=== PATIENT | female | born 1955 | race African-American/Black ===

== ENCOUNTER 2017-09-07 06:59 | Inpatient (IN) | payer BC ==
[~2017-09-07] VITALS: Ht 165.1 cm; Wt 115.9 kg
[2017-09-07 07:21] LABS: BILIRUBIN,URINE NEGATIVE (NEG); GLUCOSE,URINE NEGATIVE (NEG); NITRITE,URINE NEGATIVE (NEG); PROTEIN,URINE NEGATIVE (NEG-TRACE); UROBILINOGEN,URINE 0.2 mg/dL (0.2 mg/dL)
[2017-09-07 07:30] LABS: BACTERIA,URINE FEW /HPF (0-FEW); RBC,URINE OCC /HPF (0-2); SQUAMOUS EPITHELIAL CELL,UR FEW /LPF
[2017-09-07] MEDS ORDERED: LIDO:MAALOX:DONNATAL 1:1:1 15 ML SINGLE DOSE SWSW ONE (07:30)
[2017-09-07] MEDS ORDERED: METO-239 PO (07:40)
[2017-09-07] MEDS ORDERED: AMLO10TA2 PO (07:40)
[2017-09-07 07:42] LABS: BASO # 0.1 x10^3/uL (0.0-0.2); BASO % 1 % (0-3); EOS % 3 % (0-3); HEMATOCRIT 38.2 % (36.0-47.0); HEMOGLOBIN 12.5 g/dL (12.0-15.5); LYMPH % 16 % (24-48); MEAN CORPUSCULAR HEMOGLOBIN 28 pg (25-35); MEAN CORPUSCULAR HGB CONC 33 g/dL (31-37); MEAN CORPUSCULAR VOLUME 86 fL (79-100); MONO % 8 % (0-9); NEUT % 73 % (31-73); PLATELET COUNT 262 x10^3/uL (140-400); RED BLOOD COUNT 4.44 x10^6/uL (3.50-5.40); RED CELL DISTRIBUTION WIDTH 14.6 % (11.5-14.5); WHITE BLOOD COUNT 6.5 x10^3/uL (4.0-11.0)
--- NOTE | 2017-09-07 07:44 | EKG ---
[facility] [address] [place] [address] Test Date: 2017-09-07 Test Time: 07:43:10 Pat Name: GEGE MCCRARY Department: Room: Gender: F Computer Security Specialist: DIAMOND : 1955 Requested By: KENNEDY MCKEON Order Number: [id number] Reading MD: Zoila Guerrero Measurements Intervals [place] Rate: 70 P: 28 FL: 154 QRS: -10 QRSD: 82 T: 14 QT: 418 QTc: 454 Interpretive Statements SINUS RHYTHM LEFTWARD AXIS QRS(T) CONTOUR ABNORMALITY CONSIDER ANTEROLATERAL MYOCARDIAL DAMAGE Electronically Signed On 09-08-2017 19:25:16 CDT by Zoila Guerrero
[2017-09-07 07:53] LABS: CALCIUM 9.4 mg/dL (8.5-10.1); CREATININE 1.1 mg/dL (0.6-1.0); GFR 61.5; POTASSIUM 3.7 mmol/L (3.5-5.1)
--- NOTE | 2017-09-07 07:54 | PHYS DOC ---
Past Medical History Past Medical History: Hypertension, Other Additional Past Medical Histor: Hiatel hernia, Seasonal allergies,Spots on lungs scheduled to see Pul Past Surgical History: Tubal ligation, Other Additional Past Surgical Histo: R)knee scoped and scraped. Alcohol Use: Occasionally Drug Use: None Adult General Chief Complaint Chief Complaint: ABDOMINAL PAIN HPI HPI Patient is a 61 year old female presents to the emergency department stating that she has having epigastric pain and discomfort. Patient states she's been diagnosed with a hiatal hernia at [facility]. Patient states around 9:00 last night she developed a squeezing type pain in her epigastric area. She states normally when this occurs that she can take some Tums as well as vomit and have diarrhea at that relieves the discomfort. She states that she did take 2 Tums and vomited a little with no relief. Patient denies any fever, chills or any diarrhea currently. Shunt states she has not taken her blood pressure medications this morning as she normally does. Review of Systems Review of Systems Constitutional: Denies fever or chills [] Eyes: Denies change in visual acuity, redness, or eye pain [] HENT: Denies nasal congestion or sore throat [] Respiratory: Denies cough or shortness of breath [] Cardiovascular: No additional information not addressed in HPI [] GI: upper abdominal pain, nausea, vomiting, denies bloody stools or diarrhea [] : Denies dysuria or hematuria [] Musculoskeletal: Denies back pain or joint pain [] Integument: Denies rash or skin lesions [] Neurologic: Denies headache, focal weakness or sensory changes [] Endocrine: Denies polyuria or polydipsia [] Current Medications Current Medications Current Medications Medications (Trade) Dose Ordered Sig/Krish Start Time Stop Time Status Last Admin Dose Admin Multi-Ingredient Mouthwash/Gargle (Gi Cocktail Single Dose) 15 ml 1X ONCE 09/07/17 07:30 09/07/17 07:39 DC 09/07/17 07:56 15 ML Allergies Allergies Allergies Coded Allergies Type Severity Reaction Last Updated Verified Sulfa (Sulfonamide Antibiotics) Allergy Severe Anaphylaxis 09/07/17 Yes aspirin Allergy Severe Anaphylaxis 09/07/17 Yes codeine Allergy Severe Anaphylaxis 09/07/17 Yes Physical Exam Physical Exam Constitutional: Well developed, well nourished, no acute distress, non-toxic appearance. [] HENT: Normocephalic, atraumatic, bilateral external ears normal, oropharynx moist, no oral exudates, nose normal. [] Eyes: PERRLA, EOMI, conjunctiva normal, no discharge. [] Neck: Normal range of motion, no tenderness, supple, no stridor. [] Cardiovascular:Heart rate regular rhythm, no murmur [] Lungs & Thorax: Bilateral breath sounds clear to auscultation [] Abdomen: Bowel sounds hypoactive soft, epigastric and left sided abdominal tenderness, no masses, no pulsatile masses. No guarding, no rebound tenderness noted. Skin: Warm, dry, no erythema, no rash. [] Extremities: No tenderness, no cyanosis, no clubbing, ROM intact, no edema. [] Neurologic: Alert and oriented X 3, normal motor function, normal sensory function, no focal deficits noted. [] Psychologic: Affect normal, judgement normal, mood normal. [] Current Patient Data Vital Signs Vital Signs Date Time Temp Pulse Resp B/P (MAP) Pulse Ox O2 Delivery O2 Flow Rate FiO2 09/07/17 08:50 68 234/99 09/07/17 08:45 20 97 Room Air 09/07/17 07:23 97.8 97.8 Lab Values Laboratory Tests Test 09/07/17 07:00 09/07/17 07:30 Urine Collection Type Void Urine Color Yellow Urine Clarity Clear Urine pH 7.0 Urine Specific [place] <=1.005 Urine Protein Negative mg/dL (NEG-TRACE) Urine Glucose (UA) Negative mg/dL (NEG) Urine Ketones (Stick) Negative mg/dL (NEG) Urine Blood Negative (NEG) Urine Nitrite Negative (NEG) Urine Bilirubin Negative (NEG) Urine Urobilinogen Dipstick 0.2 mg/dL (0.2 mg/dL) Urine Leukocyte Esterase Negative (NEG) Urine RBC Occ /HPF (0-2) Urine WBC 1-4 /HPF (0-4) Urine Squamous Epithelial Cells Few /LPF Urine Bacteria Few /HPF (0-FEW) White Blood Count 6.5 x10^3/uL (4.0-11.0) Red Blood Count 4.44 x10^6/uL (3.50-5.40) Hemoglobin 12.5 g/dL (12.0-15.5) Hematocrit 38.2 % (36.0-47.0) Mean Corpuscular Volume 86 fL (79-100) Mean Corpuscular Hemoglobin 28 pg (25-35) Mean Corpuscular Hemoglobin Concent 33 g/dL (31-37) Red Cell Distribution Width 14.6 % (11.5-14.5) H Platelet Count 262 x10^3/uL (140-400) Neutrophils (%) (Auto) 73 % (31-73) Lymphocytes (%) (Auto) 16 % (24-48) L Monocytes (%) (Auto) 8 % (0-9) Eosinophils (%) (Auto) 3 % (0-3) Basophils (%) (Auto) 1 % (0-3) Neutrophils # (Auto) 4.7 x10^3uL (1.8-7.7) Lymphocytes # (Auto) 1.0 x10^3/uL (1.0-4.8) Monocytes # (Auto) 0.5 x10^3/uL (0.0-1.1) Eosinophils # (Auto) 0.2 x10^3/uL (0.0-0.7) Basophils # (Auto) 0.1 x10^3/uL (0.0-0.2) Sodium Level 146 mmol/L (136-145) H Potassium Level 3.7 mmol/L (3.5-5.1) Chloride Level 109 mmol/L (98-107) H Carbon Dioxide Level 31 mmol/L (21-32) Anion Gap 6 (6-14) Blood Urea Nitrogen 16 mg/dL (7-20) Creatinine 1.1 mg/dL (0.6-1.0) H Estimated GFR (Cockcroft-Gault) 61.5 BUN/Creatinine Ratio 15 (6-20) Glucose Level 93 mg/dL (70-99) Calcium Level 9.4 mg/dL (8.5-10.1) Total Bilirubin 0.7 mg/dL (0.2-1.0) Aspartate Amino Transferase (AST) 453 U/L (15-37) H Alanine Aminotransferase (ALT) 278 U/L (14-59) H Alkaline Phosphatase 202 U/L (46-116) H Troponin I Quantitative < 0.017 ng/mL (0.000-0.055) Total Protein 7.9 g/dL (6.4-8.2) Albumin 3.3 g/dL (3.4-5.0) L Albumin/Globulin Ratio 0.7 (1.0-1.7) L Amylase Level 2708 U/L (25-115) H Lipase 97873 U/L (73-393) H Laboratory Tests 09/07/17 07:30 Laboratory Tests 09/07/17 07:30 EKG EKG EKG completed at 07 43. Heart rate 70 sinus rhythm noted, T wave inversion in lead III no STEMI per Dr. Mooney.[] Radiology/Procedures Radiology/Procedures [[address] [address] IMAGING REPORT Signed PATIENT: GEGE MCCRARY ACCOUNT: [id number] : 1955 LOCATION: ER AGE: 61 SEX: F EXAM STATUS: REG ER ORD. PHYSICIAN: KENNEDY MCKEON APRN REASON: upper abdominal pain and left sided abd pain- putting in IV @ 730 PROCEDURE: ACUTE ABDOMEN SERIES Two-view abdominal series and chest x-ray History: Upper abdominal pain and left-sided abdominal pain for one week Findings: No obstructive bowel pattern is seen. Mild fecal retention is seen. No significant air-fluid levels are evident. No free air is seen. Chest x-ray demonstrates no acute lung infiltrate or pleural effusion or pulmonary edema or pneumothorax. The heart size and pulmonary vasculature and both papa are stable from February 26, 2011. IMPRESSION: No acute radiographic abnormality. DICTATED and SIGNED BY: ITZEL KRISHNAMURTHY MD DATE: 09/07/17805 CC: KENNEDY MCKEON APRN; NON,STAFF; TRACY KAY ~ ][place] [address] [place] [address] IMAGING REPORT Signed PATIENT: GEGE MCCRARY ACCOUNT: [id number] : 1955 LOCATION: [address] [place] [address] AGE: 61 SEX: F EXAM STATUS: ADM IN ORD. PHYSICIAN: KENNEDY MCKEON APRN REASON: abdominal pain elevates AST ALT lipase PROCEDURE: ABDOMEN LTD Right upper quadrant abdomen ultrasound study History: Elevated AST and ALT. Right upper quadrant pain. Findings: The pancreas is homogeneous without focal enlargement. The liver is homogeneous and measures 15 cm in length. The gallbladder is completely shadowed due to multiple stones within the gallbladder. Positive Rodriguez's sign was elicited during transducer examination of the gallbladder. The extra hepatic bile duct measures 4.8 mm in caliber which is normal. The length of the right kidney is 11.0 cm. No hydronephrosis or renal mass or perinephric fluid collection is seen on this side. IMPRESSION: Cholelithiasis. The gallbladder is completely shadowed due to stones within the gallbladder. Positive Rodriguez's sign. DICTATED and SIGNED BY: ITZEL KRISHNAMURTHY MD DATE: 09/07/17 0923 CC: ALEJANDRA ARENAS K III DO; KENNEDY MCKEON APRN; TRACY KAY ~ Course & Med Decision Making Course & Med Decision Making Pertinent Labs and Imaging studies reviewed. (See chart for details) AST and ALT elevated as well as Lipase. Patient does state she has a history of gall stones. Patient will be admitted to Dr Arenas as requested by him. Patient states she has had relief with GI cocktail. Home BP medication metoprolol was given once the dosage was verified with [facility] pharmacy. Patient agrees with admission to the hospital. GI consult was placed. [] Dragon Disclaimer Dragon Disclaimer This electronic medical record was generated, in whole or in part, using a voice recognition dictation system. Departure Departure Impression: Primary Impression: Pancreatitis Disposition: ADMITTED INPATIENT Admitting Physician: Alejandra Arenas Referrals: TRACY KAY (PCP) Problem Qualifiers Primary Impression: Pancreatitis Chronicity: acute Pancreatitis type: unspecified pancreatitis type KENNEDY MCKEON APRN Sep 07, 2017 07:54
[2017-09-07 07:58] LABS: ALBUMIN 3.3 g/dL (3.4-5.0); ALBUMIN/GLOBULIN RATIO 0.7 (1.0-1.7); TOTAL BILIRUBIN 0.7 mg/dL (0.2-1.0); TOTAL PROTEIN 7.9 g/dL (6.4-8.2)
--- NOTE | 2017-09-07 08:10 | RAD ---
Two-view abdominal series and chest x-ray History: Upper abdominal pain and left-sided abdominal pain for one week Findings: No obstructive bowel pattern is seen. Mild fecal retention is seen. No significant air-fluid levels are evident. No free air is seen. Chest x-ray demonstrates no acute lung infiltrate or pleural effusion or pulmonary edema or pneumothorax. The heart size and pulmonary vasculature and both papa are stable from February 26, 2011. IMPRESSION: No acute radiographic abnormality.
[2017-09-07 08:15] LABS: AMYLASE 2708 U/L (25-115)
[2017-09-07] MEDS ORDERED: MORPHINE SULFATE 2 MG/ML DISP.SYRIN. IV PRN ×2 (09:00→17:30)
[2017-09-07] MEDS ORDERED: METOPROLOL SUCC 24HR ER 50 MG TAB.ER.24H. PO ONE (09:00)
[2017-09-07] MEDS ORDERED: ONDANSETRON PF 4 MG/2 ML VIAL. IV PRN (09:00)
[2017-09-07] MEDS: PANTOPRAZOLE 40 MG TABLET.DR. PO SCH (09:00)
--- NOTE | 2017-09-07 09:29 | RAD ---
Right upper quadrant abdomen ultrasound study History: Elevated AST and ALT. Right upper quadrant pain. Findings: The pancreas is homogeneous without focal enlargement. The liver is homogeneous and measures 15 cm in length. The gallbladder is completely shadowed due to multiple stones within the gallbladder. Positive Rodriguez's sign was elicited during transducer examination of the gallbladder. The extra hepatic bile duct measures 4.8 mm in caliber which is normal. The length of the right kidney is 11.0 cm. No hydronephrosis or renal mass or perinephric fluid collection is seen on this side. IMPRESSION: Cholelithiasis. The gallbladder is completely shadowed due to stones within the gallbladder. Positive Rodriguez's sign.
--- NOTE | 2017-09-07 10:41 | PDOC2 ---
GI CONSULT Reason For Consult: Pancreatitis HPI: HPI: 61 y/o female presented to ER with h/o epigastric pain radiating to back with N and V. Laboratory with elevated LFT's and lipase. Sonogram with gallstones. States episodic milder episodes for "years". Recently in [facility] with same and had EGD; told from "hiatal hernia". Sono then with gallstones as well, but apparently no evidence of biliary or pancreatic issue at that time. Still quite uncomfortable. No h/o alcohol intake other than occasionally. Denies heartburn or dysphagia. No h/o liver disease. Non-smoker. Very occasional alcohol. No ASA or NSAID use. Occasional loose stools with her episodes, but no ongoing diarrhea or constipation. No overt bleeding or melena. No prior colonoscopy, but scheduled to have in [facility] later this month. GIFH positive for Crohn's in brother, ovarian ca in mother, and breast cancer in an aunt. PMH: PMH: HTN, Seasonal allergies, Pulmonary nodules (recent, to be evaluated); S/P BTL, right knee scope. FH: Family History: Cancer Social History: Smoke: No ALCOHOL: rare Drugs: None ROS: GEN: Denies fevers, chills, sweats HEENT: Denies blurred vision, sore throat CV: Denies chest pain RESP: Denies shortness of air, cough GI: Per HPI : Denies hematuria, dysuria ENDO: Denies weight changes NEURO: Denies confusion, dizziness MSK: Denies weakness, joint pain/swelling SKIN: Denies jaundice, pruritus Vitals: Vitals: Vital Signs Date Time Temp Pulse Resp B/P (MAP) Pulse Ox O2 Delivery O2 Flow Rate FiO2 09/07/17 08:50 68 234/99 09/07/17 08:45 20 97 Room Air 09/07/17 07:23 97.8 97.8 Labs: Labs: Laboratory Tests Test 09/07/17 07:00 09/07/17 07:30 Urine Collection Type Void Urine Color Yellow Urine Clarity Clear Urine pH 7.0 Urine Specific [place] <=1.005 Urine Protein Negative mg/dL (NEG-TRACE) Urine Glucose (UA) Negative mg/dL (NEG) Urine Ketones (Stick) Negative mg/dL (NEG) Urine Blood Negative (NEG) Urine Nitrite Negative (NEG) Urine Bilirubin Negative (NEG) Urine Urobilinogen Dipstick 0.2 mg/dL (0.2 mg/dL) Urine Leukocyte Esterase Negative (NEG) Urine RBC Occ /HPF (0-2) Urine WBC 1-4 /HPF (0-4) Urine Squamous Epithelial Cells Few /LPF Urine Bacteria Few /HPF (0-FEW) White Blood Count 6.5 x10^3/uL (4.0-11.0) Red Blood Count 4.44 x10^6/uL (3.50-5.40) Hemoglobin 12.5 g/dL (12.0-15.5) Hematocrit 38.2 % (36.0-47.0) Mean Corpuscular Volume 86 fL (79-100) Mean Corpuscular Hemoglobin 28 pg (25-35) Mean Corpuscular Hemoglobin Concent 33 g/dL (31-37) Red Cell Distribution Width 14.6 % (11.5-14.5) Platelet Count 262 x10^3/uL (140-400) Neutrophils (%) (Auto) 73 % (31-73) Lymphocytes (%) (Auto) 16 % (24-48) Monocytes (%) (Auto) 8 % (0-9) Eosinophils (%) (Auto) 3 % (0-3) Basophils (%) (Auto) 1 % (0-3) Neutrophils # (Auto) 4.7 x10^3uL (1.8-7.7) Lymphocytes # (Auto) 1.0 x10^3/uL (1.0-4.8) Monocytes # (Auto) 0.5 x10^3/uL (0.0-1.1) Eosinophils # (Auto) 0.2 x10^3/uL (0.0-0.7) Basophils # (Auto) 0.1 x10^3/uL (0.0-0.2) Sodium Level 146 mmol/L (136-145) Potassium Level 3.7 mmol/L (3.5-5.1) Chloride Level 109 mmol/L (98-107) Carbon Dioxide Level 31 mmol/L (21-32) Anion Gap 6 (6-14) Blood Urea Nitrogen 16 mg/dL (7-20) Creatinine 1.1 mg/dL (0.6-1.0) Estimated GFR (Cockcroft-Gault) 61.5 BUN/Creatinine Ratio 15 (6-20) Glucose Level 93 mg/dL (70-99) Calcium Level 9.4 mg/dL (8.5-10.1) Total Bilirubin 0.7 mg/dL (0.2-1.0) Aspartate Amino Transf (AST/SGOT) 453 U/L (15-37) Alanine Aminotransferase (ALT/SGPT) 278 U/L (14-59) Alkaline Phosphatase 202 U/L (46-116) Troponin I Quantitative < 0.017 ng/mL (0.000-0.055) Total Protein 7.9 g/dL (6.4-8.2) Albumin 3.3 g/dL (3.4-5.0) Albumin/Globulin Ratio 0.7 (1.0-1.7) Amylase Level 2708 U/L (25-115) Lipase 86733 U/L (73-393) Allergies: Coded Allergies: Sulfa (Sulfonamide Antibiotics) (Verified Allergy, Severe, Anaphylaxis, ) aspirin (Verified Allergy, Severe, Anaphylaxis, 09/07/17) codeine (Verified Allergy, Severe, Anaphylaxis, 09/07/17) Medications: Current Medications Medications (Trade) Dose Ordered Sig/Krish Route PRN Reason Start Time Stop Time Status Last Admin Dose Admin Multi-Ingredient Mouthwash/Gargle (Gi Cocktail Single Dose) 15 ml 1X ONCE SWSW 09/07/17 07:30 09/07/17 07:39 DC 09/07/17 07:56 Metoprolol Succinate (Toprol Xl) 50 mg 1X ONCE PO 09/07/17 09:00 09/07/17 09:01 DC 09/07/17 08:50 Imaging: Imaging: On sonogram: IMPRESSION: Cholelithiasis. The gallbladder is completely shadowed due to stones within the gallbladder. Positive Rodriguez's sign. PE: GEN: NAD HEENT: Atraumatic, PERRLA LUNGS: CTAB HEART: RRR, no murmurs ABD: NABS, S/somewhat distended, moderate diffuse tenderness with "fullness" upper abdomen EXTREMITY: No edema SKIN: No rashes, no jaundice NEURO/PSYCH: A & O 3 A/P: A/P: IMP: Acute pancreatitis, likely biliary. H/o HH; no reflux historically. Cholelithiasis. REC: CT to assess severity of attack, r/o acute pseudocyst. NPO, ivf's, pain control. Follow labs, clinically. Ultimately cholecystectomy; ideally prior to discharge. --other pending. Thanks. Call if questions. RAQUEL JOSEPH MD Sep 07, 2017 10:41
[2017-09-07 10:59] VITALS: BP 228/105
[2017-09-07 11:08] VITALS: BP 228/105
--- NOTE | 2017-09-07 11:27 | HP ---
ADMIT DATE: 09/07/2017 CHIEF COMPLAINT: Abdominal pain. HISTORY OF PRESENT ILLNESS: The patient is a pleasant 61-year-old female who has abdominal pain. She has been having some nausea as well. She tried taking some home medicines, but that did not work. She had an ultrasound a couple of months ago and she was told she had gallstones. While in the ER here, she is noted to have pancreatitis with a lipase of 52,000. I have discussed the case with ER physician. We are going to admit the patient and consult GI and General Surgery for pancreatitis, probable gallstone. PAST MEDICAL HISTORY: Gallstones, hypertension, allergic rhinitis and right knee injury. ALLERGIES: SULFA, ASPIRIN and CODEINE. FAMILY HISTORY: Diabetes. SOCIAL HISTORY: She does not drink, smoke or take drugs. MEDICATIONS: Reviewed. REVIEW OF SYSTEMS: REVIEW OF SYSTEMS: GENERAL: No history of weight change, weakness or fevers. SKIN: No bruising, hair changes or rashes. EYES: No blurred, double or loss of vision. NOSE AND THROAT: No history of nosebleeds, hoarseness or sore throat. HEART: No history of palpitations, chest pain or shortness of breath on exertion. LUNGS: Denies cough, hemoptysis, wheezing or shortness of breath. GASTROINTESTINAL: She complains of abdominal pain. GENITOURINARY: No history of frequency, urgency, hesitancy or nocturia. NEUROLOGIC: Denies history of numbness, tingling, tremor or weakness. PSYCHIATRIC: No history of panic, anxiety or depression. ENDOCRINE: No history of heat or cold intolerance, polyuria or polydipsia. EXTREMITIES: Denies muscle weakness, joint pain, pain on walking or stiffness. PHYSICAL EXAMINATION: VITAL SIGNS: Temperature afebrile, pulse 97, respirations 18 and blood pressure is 236/90. GENERAL: She is alert and cooperative. HEART: Normal S1 and S2. LUNGS: Clear. ABDOMEN: Soft. Decreased bowel sounds and tender. EXTREMITIES: No edema. SKIN: No rashes. PSYCHIATRIC: She is stable. VASCULAR: Good capillary refill. ENDOCRINE: No thyromegaly. LYMPHATICS: No cervical nodes. HEMATOPOIETIC: No bruising. LABORATORY DATA: White count was 6, hemoglobin 12 and platelets 262. Electrolytes: Sodium 146, potassium 3.7, chloride 109, bicarbonate 31, BUN 16, creatinine 1.1 and glucose 93. AST high at 453, ALT high at 278 and alkaline phosphatase 202. Albumin low at 3.3. ASSESSMENT AND PLAN: Probable gallstone pancreatitis with hypernatremia, mild protein malnutrition. The patient has been admitted. We will start IV fluids, p.r.n. narcotics, p.r.n. Zofran. Consult General Surgery. Consult Gastrointestinal. PROGNOSIS: Guarded. ALEJANDRA COBOS DO DR: KOURTNEY/kylah JOB#: [id number] / [id number]
[2017-09-07] MEDS ORDERED: CONTRAST GIVEN MC PRN (12:15)
[2017-09-07] MEDS ORDERED: IOHEXOL 240 MG/ML 50ML VIAL. PO ONE (12:30)
[2017-09-07] MEDS ORDERED: IOHEXOL 300 MG/ML 75 ML VIAL IV ONE (12:30)
--- NOTE | 2017-09-07 13:21 | PDOC2 ---
CASH [employer]OT[employer]NER 09/07/17 1321: CONSULT Date of Consult Date of Consult DATE: 09/07/17 TIME: 13:15 Reason for Consult Reason for Consult: pancreatitis Referring Physician Referring Physician: ER Identification/Chief Complaint Chief Complaint abdominal pain Problems: Source Source: Chart review, Patient History of Present Illness Reason for Visit: abdominal pain, nausea, emesis since Saturday. Became significantly worse yesterday. She has had this pain intermittently for some time. Can be aggravated by foods. Past Medical History Cardiovascular: HTN CENTRAL NERVOUS SYSTEM: TIA Past Surgical History Past Surgical History: Tubal Ligation Family History Family History: Other (noncontributory to current illness ) Social History No ALCOHOL: rare Drugs: None Lives: Alone Current Medications Current Medications Current Medications Multi-Ingredient Mouthwash/Gargle (Gi Cocktail Single Dose) 15 ml 1X ONCE SWSW Last administered on 09/07/17 07:56; Start 09/07/17 at 07:30; Stop at 07:39; Status DC Metoprolol Succinate (Toprol Xl) 50 mg 1X ONCE PO Last administered on 08:50; Start 09/07/17 at 09:00; Stop 09/07/17 at 09:01; Status DC Ondansetron HCl (Zofran) 4 mg PRN Q8HRS PRN IV NAUSEA/VOMITING; Start at 09:00; Stop 09/08/17 at 08:59 Morphine Sulfate 2 mg PRN Q2HR PRN IV PAIN; Start 09/07/17 at 09:00; Stop at 09:02; Status DC Sodium Chloride 1,000 ml @ 100 mls/hr Q10H IV ; Start 09/07/17 at 09:00; Stop 09/08/17 at 08:59 Pantoprazole Sodium (Protonix) 40 mg DAILYAC PO ; Start 09/07/17 at 09:00 Iohexol (Omnipaque 240 Mg/ml) 50 ml 1X ONCE PO ; Start 09/07/17 at 12:30; Stop 09/07/17 at 12:31; Status DC Iohexol (Omnipaque 300 Mg/ml) 75 ml 1X ONCE IV ; Start 09/07/17 at 12:30; Stop 09/07/17 at 12:31; Status DC Info (Do NOT chart on this entry -- for MONITORING) 1 each PRN DAILY PRN MC SEE COMMENTS; Start 09/07/17 at 12:15; Stop 09/09/17 at 12:14 Active Scripts Active Reported Metoprolol Succinate ( Xl ) (Metoprolol Succinate) 25 Mg Tab.er.24h 25 Mg PO DAILY Amlodipine Besylate 10 Mg Tablet 10 Mg PO DAILY Allergies Allergies: Coded Allergies: Sulfa (Sulfonamide Antibiotics) (Verified Allergy, Severe, Anaphylaxis, ) aspirin (Verified Allergy, Severe, Anaphylaxis, 09/07/17) codeine (Verified Allergy, Severe, Anaphylaxis, 09/07/17) ROS General: No: Chills, Other (fevers) PSYCHOLOGICAL ROS: No: Anxiety, Depression Eyes: No Blurry vision, No Double vision HEENT: No: Heacaches, Sore Throat Hematological and Lymphatic: YES: Bleeding Problems, No: Blood Clots Respiratory: YES: Shortness of breath (due to abdominal pain), No: Cough Cardiovascular: No Chest Pain, No Palpitations Gastrointestinal: Yes Other (see hpi) Genitourinary: No Dysuria, No Hematuria Musculoskeletal: No Joint Pain, No Muscle Pain Neurological: No Confusion, No Numbness/Tingling Skin: No Pruritus, No Rash Physical Exam General: Alert, Oriented X3, Cooperative, No acute distress HEENT: PERRLA, Mucous membr. moist/pink Lungs: Clear to auscultation, Normal air movement Heart: Normal S1, Normal S2, No murmurs, Other (tachy) Abdomen: Soft, Other (mildy tender upper abdomen ) Extremities: No clubbing, No cyanosis Skin: No rashes, No breakdown Neuro: Normal gait, Normal speech Psych/Mental Status: Mental status NL, Mood NL MUSCULOSKELETAL: No deformity, No swelling Vitals VITALS Vital Signs Date Time Temp Pulse Resp B/P (MAP) Pulse Ox O2 Delivery O2 Flow Rate FiO2 09/07/17 11:08 97.8 121 18 228/105 (146) 97 Room Air 97.8 Labs Labs Laboratory Tests Test 09/07/17 07:00 09/07/17 07:30 Urine Collection Type Void Urine Color Yellow Urine Clarity Clear Urine pH 7.0 Urine Specific [place] <=1.005 Urine Protein Negative mg/dL (NEG-TRACE) Urine Glucose (UA) Negative mg/dL (NEG) Urine Ketones (Stick) Negative mg/dL (NEG) Urine Blood Negative (NEG) Urine Nitrite Negative (NEG) Urine Bilirubin Negative (NEG) Urine Urobilinogen Dipstick 0.2 mg/dL (0.2 mg/dL) Urine Leukocyte Esterase Negative (NEG) Urine RBC Occ /HPF (0-2) Urine WBC 1-4 /HPF (0-4) Urine Squamous Epithelial Cells Few /LPF Urine Bacteria Few /HPF (0-FEW) White Blood Count 6.5 x10^3/uL (4.0-11.0) Red Blood Count 4.44 x10^6/uL (3.50-5.40) Hemoglobin 12.5 g/dL (12.0-15.5) Hematocrit 38.2 % (36.0-47.0) Mean Corpuscular Volume 86 fL (79-100) Mean Corpuscular Hemoglobin 28 pg (25-35) Mean Corpuscular Hemoglobin Concent 33 g/dL (31-37) Red Cell Distribution Width 14.6 % (11.5-14.5) Platelet Count 262 x10^3/uL (140-400) Neutrophils (%) (Auto) 73 % (31-73) Lymphocytes (%) (Auto) 16 % (24-48) Monocytes (%) (Auto) 8 % (0-9) Eosinophils (%) (Auto) 3 % (0-3) Basophils (%) (Auto) 1 % (0-3) Neutrophils # (Auto) 4.7 x10^3uL (1.8-7.7) Lymphocytes # (Auto) 1.0 x10^3/uL (1.0-4.8) Monocytes # (Auto) 0.5 x10^3/uL (0.0-1.1) Eosinophils # (Auto) 0.2 x10^3/uL (0.0-0.7) Basophils # (Auto) 0.1 x10^3/uL (0.0-0.2) Sodium Level 146 mmol/L (136-145) Potassium Level 3.7 mmol/L (3.5-5.1) Chloride Level 109 mmol/L (98-107) Carbon Dioxide Level 31 mmol/L (21-32) Anion Gap 6 (6-14) Blood Urea Nitrogen 16 mg/dL (7-20) Creatinine 1.1 mg/dL (0.6-1.0) Estimated GFR (Cockcroft-Gault) 61.5 BUN/Creatinine Ratio 15 (6-20) Glucose Level 93 mg/dL (70-99) Calcium Level 9.4 mg/dL (8.5-10.1) Total Bilirubin 0.7 mg/dL (0.2-1.0) Aspartate Amino Transf (AST/SGOT) 453 U/L (15-37) Alanine Aminotransferase (ALT/SGPT) 278 U/L (14-59) Alkaline Phosphatase 202 U/L (46-116) Troponin I Quantitative < 0.017 ng/mL (0.000-0.055) Total Protein 7.9 g/dL (6.4-8.2) Albumin 3.3 g/dL (3.4-5.0) Albumin/Globulin Ratio 0.7 (1.0-1.7) Amylase Level 2708 U/L (25-115) Lipase 08996 U/L (73-393) Laboratory Tests Test 09/07/17 07:00 09/07/17 07:30 Urine Collection Type Void Urine Color Yellow Urine Clarity Clear Urine pH 7.0 Urine Specific [place] <=1.005 Urine Protein Negative mg/dL (NEG-TRACE) Urine Glucose (UA) Negative mg/dL (NEG) Urine Ketones (Stick) Negative mg/dL (NEG) Urine Blood Negative (NEG) Urine Nitrite Negative (NEG) Urine Bilirubin Negative (NEG) Urine Urobilinogen Dipstick 0.2 mg/dL (0.2 mg/dL) Urine Leukocyte Esterase Negative (NEG) Urine RBC Occ /HPF (0-2) Urine WBC 1-4 /HPF (0-4) Urine Squamous Epithelial Cells Few /LPF Urine Bacteria Few /HPF (0-FEW) White Blood Count 6.5 x10^3/uL (4.0-11.0) Red Blood Count 4.44 x10^6/uL (3.50-5.40) Hemoglobin 12.5 g/dL (12.0-15.5) Hematocrit 38.2 % (36.0-47.0) Mean Corpuscular Volume 86 fL (79-100) Mean Corpuscular Hemoglobin 28 pg (25-35) Mean Corpuscular Hemoglobin Concent 33 g/dL (31-37) Red Cell Distribution Width 14.6 % (11.5-14.5) Platelet Count 262 x10^3/uL (140-400) Neutrophils (%) (Auto) 73 % (31-73) Lymphocytes (%) (Auto) 16 % (24-48) Monocytes (%) (Auto) 8 % (0-9) Eosinophils (%) (Auto) 3 % (0-3) Basophils (%) (Auto) 1 % (0-3) Neutrophils # (Auto) 4.7 x10^3uL (1.8-7.7) Lymphocytes # (Auto) 1.0 x10^3/uL (1.0-4.8) Monocytes # (Auto) 0.5 x10^3/uL (0.0-1.1) Eosinophils # (Auto) 0.2 x10^3/uL (0.0-0.7) Basophils # (Auto) 0.1 x10^3/uL (0.0-0.2) Sodium Level 146 mmol/L (136-145) Potassium Level 3.7 mmol/L (3.5-5.1) Chloride Level 109 mmol/L (98-107) Carbon Dioxide Level 31 mmol/L (21-32) Anion Gap 6 (6-14) Blood Urea Nitrogen 16 mg/dL (7-20) Creatinine 1.1 mg/dL (0.6-1.0) Estimated GFR (Cockcroft-Gault) 61.5 BUN/Creatinine Ratio 15 (6-20) Glucose Level 93 mg/dL (70-99) Calcium Level 9.4 mg/dL (8.5-10.1) Total Bilirubin 0.7 mg/dL (0.2-1.0) Aspartate Amino Transf (AST/SGOT) 453 U/L (15-37) Alanine Aminotransferase (ALT/SGPT) 278 U/L (14-59) Alkaline Phosphatase 202 U/L (46-116) Troponin I Quantitative < 0.017 ng/mL (0.000-0.055) Total Protein 7.9 g/dL (6.4-8.2) Albumin 3.3 g/dL (3.4-5.0) Albumin/Globulin Ratio 0.7 (1.0-1.7) Amylase Level 2708 U/L (25-115) Lipase 42204 U/L (73-393) Assessment/Plan Assessment/Plan gs pancreatitis on plavix, although reports has not taken in couple of weeks lipase [id number] on admission, some tachycardia CT today to assess pancreatitis continue bowel rest, hydration cholecystectomy once pancreatitis resolved EUGENIA IRBY MD 09/07/17 1522: CONSULT Allergies Allergies: Coded Allergies: Sulfa (Sulfonamide Antibiotics) (Verified Allergy, Severe, Anaphylaxis, ) aspirin (Verified Allergy, Severe, Anaphylaxis, 09/07/17) codeine (Verified Allergy, Severe, Anaphylaxis, 09/07/17) Assessment/Plan Assessment/Plan pt seen, interviewed and examined agree with above will follow with you Thanks for consult CASH TROTTER APRN Sep 07, 2017 13:21 EUGENIA IRBY MD Sep 07, 2017 15:22
[2017-09-07 15:04] VITALS: BP 190/96
--- NOTE | 2017-09-07 15:04 | RAD ---
CT study of the abdomen and pelvis with contrast History: Generalized abdominal pain with nausea. Technique: After IV infusion 75 cc of Omnipaque 300, helical CT scanning of the abdomen and pelvis was performed. GI contrast was administered per mouth. PQRS Compliance Statement: One or more of the following individualized dose reduction techniques were utilized for this examination: 1. Automated exposure control 2. Adjustment of the mA and/or kV according to patient size 3. Use of iterative reconstruction technique Comparison: No previous CT available. Findings: The liver and spleen are normal. There is mild peripancreatic information around the head and neck of the pancreas. Peripancreatic fat is seen around the posterior aspect of the head of the pancreas. Otherwise, no pancreatic necrosis or pseudocyst or peripancreatic free fluid is evident. Small radiodensities are seen within the gallbladder consistent with gallstones. The ultrasound study performed today demonstrated complete shadowing of the gallbladder due to multiple gallstones. No extra hepatic biliary ductal dilatation is seen. No focal aneurysmal dilatation of the abdominal aorta is seen. No enlarged abdominal or pelvic lymphadenopathy is seen. Urinary bladder is not abnormally distended. No uterine mass or fibroid is seen. No dominant ovarian cyst or mass is seen. The appendix is normal The terminal ileum is unremarkable. No bowel obstruction is seen. Umbilical hernia is seen containing loops of bowel. No bowel wall thickening or inflammation is present here. The neck is wide. Poor distention of the stomach is seen. Pathology of the stomach cannot be excluded. No free air or free fluid is evident. Bibasilar atelectasis is seen. No osteolytic process is seen. IMPRESSION: Mild peripancreatic inflammatory change around the head of the pancreas consistent with pancreatitis. No pancreatic necrosis or pseudocyst or free fluid is evident. Cholelithiasis.
[2017-09-07] MEDS: METOPROLOL TART IMMED RELEASE 50 MG TABLET. PO SCH (17:38)
[2017-09-07] MEDS: IV NORMAL SALINE 1000ML BAG 1,000 ML IV SCH ×2 (19:00→21:44)
[2017-09-07 19:48] VITALS: BP 161/74
[2017-09-07 23:13] VITALS: BP 169/72
[2017-09-08] VITALS (7 sets, daily range): BP systolic 127–176; BP diastolic 62–93
[2017-09-08] MEDS: IV NORMAL SALINE 1000ML BAG 1,000 ML IV SCH ×3 (05:00→17:47)
[2017-09-08 06:04] LABS: BASO % 1 % (0-3); EOS % 5 % (0-3); HEMATOCRIT 32.9 % (36.0-47.0); HEMOGLOBIN 10.6 g/dL (12.0-15.5); LYMPH # 1.7 x10^3/uL (1.0-4.8); LYMPH % 31 % (24-48); MEAN CORPUSCULAR HEMOGLOBIN 28 pg (25-35); MEAN CORPUSCULAR HGB CONC 32 g/dL (31-37); MEAN CORPUSCULAR VOLUME 86 fL (79-100); MONO % 6 % (0-9); NEUT % 57 % (31-73); PLATELET COUNT 227 x10^3/uL (140-400); RED BLOOD COUNT 3.84 x10^6/uL (3.50-5.40); RED CELL DISTRIBUTION WIDTH 14.4 % (11.5-14.5); WHITE BLOOD COUNT 5.4 x10^3/uL (4.0-11.0)
[2017-09-08 06:34] LABS: CALCIUM 8.2 mg/dL (8.5-10.1); CREATININE 0.9 mg/dL (0.6-1.0); GFR 77.5; POTASSIUM 3.3 mmol/L (3.5-5.1)
[2017-09-08 06:43] LABS: ALBUMIN 2.8 g/dL (3.4-5.0); DIRECT BILIRUBIN 0.1 mg/dL (0.0-0.2); TOTAL BILIRUBIN 0.4 mg/dL (0.2-1.0); TOTAL PROTEIN 6.1 g/dL (6.4-8.2)
[2017-09-08] MEDS: PANTOPRAZOLE 40 MG TABLET.DR. PO SCH (07:57)
[2017-09-08] MEDS: METOPROLOL TART IMMED RELEASE 50 MG TABLET. PO SCH (07:58)
[2017-09-08] MEDS ORDERED: ONDANSETRON PF 4 MG/2 ML VIAL. IV PRN (09:15)
[2017-09-08] MEDS ORDERED: oxyCODONE/APAP 5/325 1 TAB TABLET PO PRN (09:15)
[2017-09-08] MEDS ORDERED: oxyCODONE/APAP 10/325 1 TAB TABLET PO PRN (09:15)
[2017-09-08] MEDS ORDERED: hydrALAZINE 20 MG/ML VIAL. IVP PRN (09:15)
[2017-09-08] MEDS ORDERED: METOPROLOL SUCC 24HR ER 25 MG TAB.ER.24H. PO SCH ×2 (09:30→21:00)
[2017-09-08] MEDS: amLODIPine BESYLATE 10 MG TABLET PO SCH (10:04)
--- NOTE | 2017-09-08 10:26 | PDOC ---
G I PROGRESS NOTE Subjective Feeling much better. Denies much pain. Physical Exam Lungs clear. RRR Abdomen soft, minimally tender, not distended. Review of Relevant I have reviewed the following items flor (where applicable) has been applied. Labs Laboratory Tests Test 09/07/17 07:00 09/07/17 07:30 09/08/17 05:20 Urine Collection Type Void Urine Color Yellow Urine Clarity Clear Urine pH 7.0 Urine Specific [place] <=1.005 Urine Protein Negative mg/dL (NEG-TRACE) Urine Glucose (UA) Negative mg/dL (NEG) Urine Ketones (Stick) Negative mg/dL (NEG) Urine Blood Negative (NEG) Urine Nitrite Negative (NEG) Urine Bilirubin Negative (NEG) Urine Urobilinogen Dipstick 0.2 mg/dL (0.2 mg/dL) Urine Leukocyte Esterase Negative (NEG) Urine RBC Occ /HPF (0-2) Urine WBC 1-4 /HPF (0-4) Urine Squamous Epithelial Cells Few /LPF Urine Bacteria Few /HPF (0-FEW) White Blood Count 6.5 x10^3/uL (4.0-11.0) 5.4 x10^3/uL (4.0-11.0) Red Blood Count 4.44 x10^6/uL (3.50-5.40) 3.84 x10^6/uL (3.50-5.40) Hemoglobin 12.5 g/dL (12.0-15.5) 10.6 g/dL (12.0-15.5) Hematocrit 38.2 % (36.0-47.0) 32.9 % (36.0-47.0) Mean Corpuscular Volume 86 fL (79-100) 86 fL (79-100) Mean Corpuscular Hemoglobin 28 pg (25-35) 28 pg (25-35) Mean Corpuscular Hemoglobin Concent 33 g/dL (31-37) 32 g/dL (31-37) Red Cell Distribution Width 14.6 % (11.5-14.5) 14.4 % (11.5-14.5) Platelet Count 262 x10^3/uL (140-400) 227 x10^3/uL (140-400) Neutrophils (%) (Auto) 73 % (31-73) 57 % (31-73) Lymphocytes (%) (Auto) 16 % (24-48) 31 % (24-48) Monocytes (%) (Auto) 8 % (0-9) 6 % (0-9) Eosinophils (%) (Auto) 3 % (0-3) 5 % (0-3) Basophils (%) (Auto) 1 % (0-3) 1 % (0-3) Neutrophils # (Auto) 4.7 x10^3uL (1.8-7.7) 3.1 x10^3uL (1.8-7.7) Lymphocytes # (Auto) 1.0 x10^3/uL (1.0-4.8) 1.7 x10^3/uL (1.0-4.8) Monocytes # (Auto) 0.5 x10^3/uL (0.0-1.1) 0.3 x10^3/uL (0.0-1.1) Eosinophils # (Auto) 0.2 x10^3/uL (0.0-0.7) 0.3 x10^3/uL (0.0-0.7) Basophils # (Auto) 0.1 x10^3/uL (0.0-0.2) 0.0 x10^3/uL (0.0-0.2) Sodium Level 146 mmol/L (136-145) 142 mmol/L (136-145) Potassium Level 3.7 mmol/L (3.5-5.1) 3.3 mmol/L (3.5-5.1) Chloride Level 109 mmol/L (98-107) 108 mmol/L (98-107) Carbon Dioxide Level 31 mmol/L (21-32) 27 mmol/L (21-32) Anion Gap 6 (6-14) 7 (6-14) Blood Urea Nitrogen 16 mg/dL (7-20) 12 mg/dL (7-20) Creatinine 1.1 mg/dL (0.6-1.0) 0.9 mg/dL (0.6-1.0) Estimated GFR (Cockcroft-Gault) 61.5 77.5 BUN/Creatinine Ratio 15 (6-20) Glucose Level 93 mg/dL (70-99) 87 mg/dL (70-99) Calcium Level 9.4 mg/dL (8.5-10.1) 8.2 mg/dL (8.5-10.1) Total Bilirubin 0.7 mg/dL (0.2-1.0) 0.4 mg/dL (0.2-1.0) Aspartate Amino Transf (AST/SGOT) 453 U/L (15-37) 171 U/L (15-37) Alanine Aminotransferase (ALT/SGPT) 278 U/L (14-59) 232 U/L (14-59) Alkaline Phosphatase 202 U/L (46-116) 192 U/L (46-116) Troponin I Quantitative < 0.017 ng/mL (0.000-0.055) Total Protein 7.9 g/dL (6.4-8.2) 6.1 g/dL (6.4-8.2) Albumin 3.3 g/dL (3.4-5.0) 2.8 g/dL (3.4-5.0) Albumin/Globulin Ratio 0.7 (1.0-1.7) Amylase Level 2708 U/L (25-115) Lipase 24395 U/L (73-393) 3086 U/L (73-393) Direct Bilirubin 0.1 mg/dL (0.0-0.2) Laboratory Tests Test 09/08/17 05:20 White Blood Count 5.4 x10^3/uL (4.0-11.0) Red Blood Count 3.84 x10^6/uL (3.50-5.40) Hemoglobin 10.6 g/dL (12.0-15.5) Hematocrit 32.9 % (36.0-47.0) Mean Corpuscular Volume 86 fL (79-100) Mean Corpuscular Hemoglobin 28 pg (25-35) Mean Corpuscular Hemoglobin Concent 32 g/dL (31-37) Red Cell Distribution Width 14.4 % (11.5-14.5) Platelet Count 227 x10^3/uL (140-400) Neutrophils (%) (Auto) 57 % (31-73) Lymphocytes (%) (Auto) 31 % (24-48) Monocytes (%) (Auto) 6 % (0-9) Eosinophils (%) (Auto) 5 % (0-3) Basophils (%) (Auto) 1 % (0-3) Neutrophils # (Auto) 3.1 x10^3uL (1.8-7.7) Lymphocytes # (Auto) 1.7 x10^3/uL (1.0-4.8) Monocytes # (Auto) 0.3 x10^3/uL (0.0-1.1) Eosinophils # (Auto) 0.3 x10^3/uL (0.0-0.7) Basophils # (Auto) 0.0 x10^3/uL (0.0-0.2) Sodium Level 142 mmol/L (136-145) Potassium Level 3.3 mmol/L (3.5-5.1) Chloride Level 108 mmol/L (98-107) Carbon Dioxide Level 27 mmol/L (21-32) Anion Gap 7 (6-14) Blood Urea Nitrogen 12 mg/dL (7-20) Creatinine 0.9 mg/dL (0.6-1.0) Estimated GFR (Cockcroft-Gault) 77.5 Glucose Level 87 mg/dL (70-99) Calcium Level 8.2 mg/dL (8.5-10.1) Total Bilirubin 0.4 mg/dL (0.2-1.0) Direct Bilirubin 0.1 mg/dL (0.0-0.2) Aspartate Amino Transf (AST/SGOT) 171 U/L (15-37) Alanine Aminotransferase (ALT/SGPT) 232 U/L (14-59) Alkaline Phosphatase 192 U/L (46-116) Total Protein 6.1 g/dL (6.4-8.2) Albumin 2.8 g/dL (3.4-5.0) Lipase 3086 U/L (73-393) LFT's, bili, lipase falling. Medications Current Medications Multi-Ingredient Mouthwash/Gargle (Gi Cocktail Single Dose) 15 ml 1X ONCE SWSW Last administered on 09/07/17 07:56; Start 09/07/17 at 07:30; Stop at 07:39; Status DC Metoprolol Succinate (Toprol Xl) 50 mg 1X ONCE PO Last administered on 08:50; Start 09/07/17 at 09:00; Stop 09/07/17 at 09:01; Status DC Ondansetron HCl (Zofran) 4 mg PRN Q8HRS PRN IV NAUSEA/VOMITING; Start at 09:00; Stop 09/08/17 at 08:59; Status DC Morphine Sulfate 2 mg PRN Q2HR PRN IV PAIN; Start 09/07/17 at 09:00; Stop at 09:02; Status DC Sodium Chloride 1,000 ml @ 100 mls/hr Q10H IV Last administered on 09/07/17 21:44; Start 09/07/17 at 09:00; Stop 09/08/17 at 08:59; Status DC Pantoprazole Sodium (Protonix) 40 mg DAILYAC PO Last administered on 07:57; Start 09/07/17 at 09:00 Iohexol (Omnipaque 240 Mg/ml) 50 ml 1X ONCE PO Last administered on 12:30; Start 09/07/17 at 12:30; Stop 09/07/17 at 12:31; Status DC Iohexol (Omnipaque 300 Mg/ml) 75 ml 1X ONCE IV Last administered on 13:35; Start 09/07/17 at 12:30; Stop 09/07/17 at 12:31; Status DC Info (Do NOT chart on this entry -- for MONITORING) 1 each PRN DAILY PRN MC SEE COMMENTS; Start 09/07/17 at 12:15; Stop 09/09/17 at 12:14 Metoprolol Tartrate (Lopressor) 50 mg BID PO Last administered on 09/08/17 07 :58; Start 09/07/17 at 18:00; Stop 09/08/17 at 09:14; Status DC Morphine Sulfate 2 mg PRN Q4HRS PRN IV PAIN; Start 09/07/17 at 17:30 Ondansetron HCl (Zofran) 4 mg PRN Q6HRS PRN IV NAUSEA/VOMITING; Start at 09:15 Sodium Chloride 1,000 ml @ 125 mls/hr Q8H IV Last administered on 09/08/17 09:18; Start 09/08/17 at 09:15 Hydralazine HCl (Apresoline Inj) 10 mg PRN Q4HRS PRN IVP ELEVATED BP, SEE COMMENTS; Start 09/08/17 at 09:15 Amlodipine Besylate (Norvasc) 10 mg DAILY PO Last administered on 09/08/17t 10 :04; Start 09/08/17 at 09:30 Metoprolol Succinate (Toprol Xl) 25 mg DAILY PO ; Start 09/08/17 at 09:30; Stop 09/08/17 at 09:30; Status DC Oxycodone/ Acetaminophen (Percocet 5/325) 1 tab PRN Q4HRS PRN PO PAIN; Start 09/08/17 at 09:15; Status UNV Oxycodone/ Acetaminophen (Percocet 10/325) 1 tab PRN Q4HRS PRN PO opain; Start 09/08/17 at 09:15; Status UNV Metoprolol Succinate (Toprol Xl) 25 mg HS PO ; Start 09/08/17 at 21:00 Active Scripts Active Reported Metoprolol Succinate ( Xl ) (Metoprolol Succinate) 25 Mg Tab.er.24h 25 Mg PO DAILY Amlodipine Besylate 10 Mg Tablet 10 Mg PO DAILY Vitals/I & O Vital Sign - Last 24 Hours 09/07/17 09/07/17 09/07/17 09/07/17 10:59 11:08 15:04 17:38 Temp 97.8 97.8 98.2 97.8 97.8 98.2 Pulse 121 121 115 115 Resp 18 18 18 B/P (MAP) 228/105 (146) 228/105 (146) 190/96 (127) 190/96 Pulse Ox 97 97 97 O2 Delivery Room Air Room Air Room Air 09/07/17 09/07/17 09/07/17 09/08/17 19:48 20:00 23:13 03:11 Temp 98.5 97.9 97.6 98.5 97.9 97.6 Pulse 64 67 68 Resp 16 16 16 B/P (MAP) 161/74 (103) 169/72 (104) 155/74 (101) Pulse Ox 94 93 96 O2 Delivery Room Air Room Air Room Air Room Air 09/08/17 09/08/17 09/08/17 09/08/17 07:00 07:58 08:00 10:04 Temp 97.6 97.6 Pulse 62 62 62 Resp 16 B/P (MAP) 166/81 (109) 166/81 166/81 Pulse Ox 95 O2 Delivery Room Air Room Air Intake and Output 09/08/17 09/08/17 09/09/17 15:00 23:00 07:00 Intake Total 2585 ml Balance [address]: IMPRESSION: Mild peripancreatic inflammatory change around the head of the pancreas consistent with pancreatitis. No pancreatic necrosis or pseudocyst or free fluid is evident. Cholelithiasis. Assessment Biliary pancreatitis, improving. Plan of Care: Continue current Tx, Mgmt Plan of Care Note Cholecystectomy prior to discharge; exact timing per surgery. RAQUEL JOSEPH MD Sep 08, 2017 10:26
--- NOTE | 2017-09-08 11:03 | PDOC ---
PROGRESS NOTES Chief Complaint Chief Complaint 1. [place] pancreatitis 2. HTN, controlled History of Present Illness History of Present Illness Abd pain better, not needig IV pain meds mostly\ No emesis Lipase down to 3K from 50K CT supports pancreatitis, mild US shows GB stones SHe is eager to have kerrie this admit PLan: Ok to have full liquid diet NPO post MN Plans of lap kerrie per gS dw her - agreeable Vitals Vitals Vital Signs Date Time Temp Pulse Resp B/P (MAP) Pulse Ox O2 Delivery O2 Flow Rate FiO2 09/08/17 10:04 62 166/81 09/08/17 08:00 Room Air 09/08/17 07:00 97.6 16 95 97.6 Physical Exam General: Alert, Oriented X3, Cooperative, No acute distress Heart: Normal S1, Normal S2, No murmurs, Other (tachy) Abdomen: Soft, Other (mildy tender upper abdomen ) Extremities: No clubbing, No cyanosis Skin: No rashes, No breakdown Labs LABS Laboratory Tests Test 09/08/17 05:20 White Blood Count 5.4 x10^3/uL (4.0-11.0) Red Blood Count 3.84 x10^6/uL (3.50-5.40) Hemoglobin 10.6 g/dL (12.0-15.5) Hematocrit 32.9 % (36.0-47.0) Mean Corpuscular Volume 86 fL (79-100) Mean Corpuscular Hemoglobin 28 pg (25-35) Mean Corpuscular Hemoglobin Concent 32 g/dL (31-37) Red Cell Distribution Width 14.4 % (11.5-14.5) Platelet Count 227 x10^3/uL (140-400) Neutrophils (%) (Auto) 57 % (31-73) Lymphocytes (%) (Auto) 31 % (24-48) Monocytes (%) (Auto) 6 % (0-9) Eosinophils (%) (Auto) 5 % (0-3) Basophils (%) (Auto) 1 % (0-3) Neutrophils # (Auto) 3.1 x10^3uL (1.8-7.7) Lymphocytes # (Auto) 1.7 x10^3/uL (1.0-4.8) Monocytes # (Auto) 0.3 x10^3/uL (0.0-1.1) Eosinophils # (Auto) 0.3 x10^3/uL (0.0-0.7) Basophils # (Auto) 0.0 x10^3/uL (0.0-0.2) Sodium Level 142 mmol/L (136-145) Potassium Level 3.3 mmol/L (3.5-5.1) Chloride Level 108 mmol/L (98-107) Carbon Dioxide Level 27 mmol/L (21-32) Anion Gap 7 (6-14) Blood Urea Nitrogen 12 mg/dL (7-20) Creatinine 0.9 mg/dL (0.6-1.0) Estimated GFR (Cockcroft-Gault) 77.5 Glucose Level 87 mg/dL (70-99) Calcium Level 8.2 mg/dL (8.5-10.1) Total Bilirubin 0.4 mg/dL (0.2-1.0) Direct Bilirubin 0.1 mg/dL (0.0-0.2) Aspartate Amino Transf (AST/SGOT) 171 U/L (15-37) Alanine Aminotransferase (ALT/SGPT) 232 U/L (14-59) Alkaline Phosphatase 192 U/L (46-116) Total Protein 6.1 g/dL (6.4-8.2) Albumin 2.8 g/dL (3.4-5.0) Lipase 3086 U/L (73-393) Review of Systems Review of Systems no inc abd pain, no emesis, no CP, no SOA Comment Review of Relevant I have reviewed the following items flor (where applicable) has been applied. Labs Laboratory Tests Test 09/07/17 07:00 09/07/17 07:30 09/08/17 05:20 Urine Collection Type Void Urine Color Yellow Urine Clarity Clear Urine pH 7.0 Urine Specific [place] <=1.005 Urine Protein Negative mg/dL (NEG-TRACE) Urine Glucose (UA) Negative mg/dL (NEG) Urine Ketones (Stick) Negative mg/dL (NEG) Urine Blood Negative (NEG) Urine Nitrite Negative (NEG) Urine Bilirubin Negative (NEG) Urine Urobilinogen Dipstick 0.2 mg/dL (0.2 mg/dL) Urine Leukocyte Esterase Negative (NEG) Urine RBC Occ /HPF (0-2) Urine WBC 1-4 /HPF (0-4) Urine Squamous Epithelial Cells Few /LPF Urine Bacteria Few /HPF (0-FEW) White Blood Count 6.5 x10^3/uL (4.0-11.0) 5.4 x10^3/uL (4.0-11.0) Red Blood Count 4.44 x10^6/uL (3.50-5.40) 3.84 x10^6/uL (3.50-5.40) Hemoglobin 12.5 g/dL (12.0-15.5) 10.6 g/dL (12.0-15.5) Hematocrit 38.2 % (36.0-47.0) 32.9 % (36.0-47.0) Mean Corpuscular Volume 86 fL (79-100) 86 fL (79-100) Mean Corpuscular Hemoglobin 28 pg (25-35) 28 pg (25-35) Mean Corpuscular Hemoglobin Concent 33 g/dL (31-37) 32 g/dL (31-37) Red Cell Distribution Width 14.6 % (11.5-14.5) 14.4 % (11.5-14.5) Platelet Count 262 x10^3/uL (140-400) 227 x10^3/uL (140-400) Neutrophils (%) (Auto) 73 % (31-73) 57 % (31-73) Lymphocytes (%) (Auto) 16 % (24-48) 31 % (24-48) Monocytes (%) (Auto) 8 % (0-9) 6 % (0-9) Eosinophils (%) (Auto) 3 % (0-3) 5 % (0-3) Basophils (%) (Auto) 1 % (0-3) 1 % (0-3) Neutrophils # (Auto) 4.7 x10^3uL (1.8-7.7) 3.1 x10^3uL (1.8-7.7) Lymphocytes # (Auto) 1.0 x10^3/uL (1.0-4.8) 1.7 x10^3/uL (1.0-4.8) Monocytes # (Auto) 0.5 x10^3/uL (0.0-1.1) 0.3 x10^3/uL (0.0-1.1) Eosinophils # (Auto) 0.2 x10^3/uL (0.0-0.7) 0.3 x10^3/uL (0.0-0.7) Basophils # (Auto) 0.1 x10^3/uL (0.0-0.2) 0.0 x10^3/uL (0.0-0.2) Sodium Level 146 mmol/L (136-145) 142 mmol/L (136-145) Potassium Level 3.7 mmol/L (3.5-5.1) 3.3 mmol/L (3.5-5.1) Chloride Level 109 mmol/L (98-107) 108 mmol/L (98-107) Carbon Dioxide Level 31 mmol/L (21-32) 27 mmol/L (21-32) Anion Gap 6 (6-14) 7 (6-14) Blood Urea Nitrogen 16 mg/dL (7-20) 12 mg/dL (7-20) Creatinine 1.1 mg/dL (0.6-1.0) 0.9 mg/dL (0.6-1.0) Estimated GFR (Cockcroft-Gault) 61.5 77.5 BUN/Creatinine Ratio 15 (6-20) Glucose Level 93 mg/dL (70-99) 87 mg/dL (70-99) Calcium Level 9.4 mg/dL (8.5-10.1) 8.2 mg/dL (8.5-10.1) Total Bilirubin 0.7 mg/dL (0.2-1.0) 0.4 mg/dL (0.2-1.0) Aspartate Amino Transf (AST/SGOT) 453 U/L (15-37) 171 U/L (15-37) Alanine Aminotransferase (ALT/SGPT) 278 U/L (14-59) 232 U/L (14-59) Alkaline Phosphatase 202 U/L (46-116) 192 U/L (46-116) Troponin I Quantitative < 0.017 ng/mL (0.000-0.055) Total Protein 7.9 g/dL (6.4-8.2) 6.1 g/dL (6.4-8.2) Albumin 3.3 g/dL (3.4-5.0) 2.8 g/dL (3.4-5.0) Albumin/Globulin Ratio 0.7 (1.0-1.7) Amylase Level 2708 U/L (25-115) Lipase 39639 U/L (73-393) 3086 U/L (73-393) Direct Bilirubin 0.1 mg/dL (0.0-0.2) Laboratory Tests Test 09/08/17 05:20 White Blood Count 5.4 x10^3/uL (4.0-11.0) Red Blood Count 3.84 x10^6/uL (3.50-5.40) Hemoglobin 10.6 g/dL (12.0-15.5) Hematocrit 32.9 % (36.0-47.0) Mean Corpuscular Volume 86 fL (79-100) Mean Corpuscular Hemoglobin 28 pg (25-35) Mean Corpuscular Hemoglobin Concent 32 g/dL (31-37) Red Cell Distribution Width 14.4 % (11.5-14.5) Platelet Count 227 x10^3/uL (140-400) Neutrophils (%) (Auto) 57 % (31-73) Lymphocytes (%) (Auto) 31 % (24-48) Monocytes (%) (Auto) 6 % (0-9) Eosinophils (%) (Auto) 5 % (0-3) Basophils (%) (Auto) 1 % (0-3) Neutrophils # (Auto) 3.1 x10^3uL (1.8-7.7) Lymphocytes # (Auto) 1.7 x10^3/uL (1.0-4.8) Monocytes # (Auto) 0.3 x10^3/uL (0.0-1.1) Eosinophils # (Auto) 0.3 x10^3/uL (0.0-0.7) Basophils # (Auto) 0.0 x10^3/uL (0.0-0.2) Sodium Level 142 mmol/L (136-145) Potassium Level 3.3 mmol/L (3.5-5.1) Chloride Level 108 mmol/L (98-107) Carbon Dioxide Level 27 mmol/L (21-32) Anion Gap 7 (6-14) Blood Urea Nitrogen 12 mg/dL (7-20) Creatinine 0.9 mg/dL (0.6-1.0) Estimated GFR (Cockcroft-Gault) 77.5 Glucose Level 87 mg/dL (70-99) Calcium Level 8.2 mg/dL (8.5-10.1) Total Bilirubin 0.4 mg/dL (0.2-1.0) Direct Bilirubin 0.1 mg/dL (0.0-0.2) Aspartate Amino Transf (AST/SGOT) 171 U/L (15-37) Alanine Aminotransferase (ALT/SGPT) 232 U/L (14-59) Alkaline Phosphatase 192 U/L (46-116) Total Protein 6.1 g/dL (6.4-8.2) Albumin 2.8 g/dL (3.4-5.0) Lipase 3086 U/L (73-393) Medications Current Medications Multi-Ingredient Mouthwash/Gargle (Gi Cocktail Single Dose) 15 ml 1X ONCE SWSW Last administered on 09/07/17 07:56; Start 09/07/17 at 07:30; Stop at 07:39; Status DC Metoprolol Succinate (Toprol Xl) 50 mg 1X ONCE PO Last administered on 08:50; Start 09/07/17 at 09:00; Stop 09/07/17 at 09:01; Status DC Ondansetron HCl (Zofran) 4 mg PRN Q8HRS PRN IV NAUSEA/VOMITING; Start at 09:00; Stop 09/08/17 at 08:59; Status DC Morphine Sulfate 2 mg PRN Q2HR PRN IV PAIN; Start 09/07/17 at 09:00; Stop at 09:02; Status DC Sodium Chloride 1,000 ml @ 100 mls/hr Q10H IV Last administered on 09/07/17 21:44; Start 09/07/17 at 09:00; Stop 09/08/17 at 08:59; Status DC Pantoprazole Sodium (Protonix) 40 mg DAILYAC PO Last administered on 07:57; Start 09/07/17 at 09:00 Iohexol (Omnipaque 240 Mg/ml) 50 ml 1X ONCE PO Last administered on 12:30; Start 09/07/17 at 12:30; Stop 09/07/17 at 12:31; Status DC Iohexol (Omnipaque 300 Mg/ml) 75 ml 1X ONCE IV Last administered on 13:35; Start 09/07/17 at 12:30; Stop 09/07/17 at 12:31; Status DC Info (Do NOT chart on this entry -- for MONITORING) 1 each PRN DAILY PRN MC SEE COMMENTS; Start 09/07/17 at 12:15; Stop 09/09/17 at 12:14 Metoprolol Tartrate (Lopressor) 50 mg BID PO Last administered on 09/08/17 07 :58; Start 09/07/17 at 18:00; Stop 09/08/17 at 09:14; Status DC Morphine Sulfate 2 mg PRN Q4HRS PRN IV PAIN; Start 09/07/17 at 17:30 Ondansetron HCl (Zofran) 4 mg PRN Q6HRS PRN IV NAUSEA/VOMITING; Start at 09:15 Sodium Chloride 1,000 ml @ 125 mls/hr Q8H IV Last administered on 09/08/17 09:18; Start 09/08/17 at 09:15 Hydralazine HCl (Apresoline Inj) 10 mg PRN Q4HRS PRN IVP ELEVATED BP, SEE COMMENTS; Start 09/08/17 at 09:15 Amlodipine Besylate (Norvasc) 10 mg DAILY PO Last administered on 09/08/17 10 :04; Start 09/08/17 at 09:30 Metoprolol Succinate (Toprol Xl) 25 mg DAILY PO ; Start 09/08/17 at 09:30; Stop 09/08/17 at 09:30; Status DC Oxycodone/ Acetaminophen (Percocet 5/325) 1 tab PRN Q4HRS PRN PO PAIN; Start 09/08/17 at 09:15; Status UNV Oxycodone/ Acetaminophen (Percocet 10/325) 1 tab PRN Q4HRS PRN PO opain; Start 09/08/17 at 09:15; Status UNV Metoprolol Succinate (Toprol Xl) 25 mg HS PO ; Start 09/08/17 at 21:00 Active Scripts Active Reported Metoprolol Succinate ( Xl ) (Metoprolol Succinate) 25 Mg Tab.er.24h 25 Mg PO DAILY Amlodipine Besylate 10 Mg Tablet 10 Mg PO DAILY Vitals/I & O Vital Sign - Last 24 Hours 09/07/17 09/07/17 09/07/17 09/07/17 11:08 15:04 17:38 19:48 Temp 97.8 98.2 98.5 97.8 98.2 98.5 Pulse 121 115 115 64 Resp 18 18 16 B/P (MAP) 228/105 (146) 190/96 (127) 190/96 161/74 (103) Pulse Ox 97 97 94 O2 Delivery Room Air Room Air Room Air 09/07/17 09/07/17 09/08/17 09/08/17 20:00 23:13 03:11 07:00 Temp 97.9 97.6 97.6 97.9 97.6 97.6 Pulse 67 68 62 Resp 16 16 16 B/P (MAP) 169/72 (104) 155/74 (101) 166/81 (109) Pulse Ox 93 96 95 O2 Delivery Room Air Room Air Room Air Room Air 09/08/17 09/08/17 09/08/17 07:58 08:00 10:04 Pulse 62 62 B/P (MAP) 166/81 166/81 O2 Delivery Room Air Intake and Output 09/08/17 09/08/17 09/09/17 15:00 23:00 07:00 Intake Total 2585 ml Balance 2585 ml ENRICO MARRERO MD Sep 08, 2017 11:03
--- NOTE | 2017-09-08 12:02 | PDOC ---
[employer] 09/08/17 1202: SURGICAL PROGRESS NOTE Subjective no pain tolerating liquid diet Vital Signs Vital Signs Date Time Temp Pulse Resp B/P (MAP) Pulse Ox O2 Delivery O2 Flow Rate FiO2 09/08/17 11:28 98.0 57 16 176/80 (112) 97 Room Air 98.0 I&O Intake and Output 09/09/17 07:00 Intake Total 2585 ml Balance 2585 ml Intake Oral 700 ml IV Total 1885 ml General: Alert, Oriented X3, Cooperative, No acute distress Abdomen: Soft, No tenderness Labs Laboratory Tests Test 09/07/17 07:00 09/07/17 07:30 09/08/17 05:20 Urine Collection Type Void Urine Color Yellow Urine Clarity Clear Urine pH 7.0 Urine Specific [place] <=1.005 Urine Protein Negative mg/dL (NEG-TRACE) Urine Glucose (UA) Negative mg/dL (NEG) Urine Ketones (Stick) Negative mg/dL (NEG) Urine Blood Negative (NEG) Urine Nitrite Negative (NEG) Urine Bilirubin Negative (NEG) Urine Urobilinogen Dipstick 0.2 mg/dL (0.2 mg/dL) Urine Leukocyte Esterase Negative (NEG) Urine RBC Occ /HPF (0-2) Urine WBC 1-4 /HPF (0-4) Urine Squamous Epithelial Cells Few /LPF Urine Bacteria Few /HPF (0-FEW) White Blood Count 6.5 x10^3/uL (4.0-11.0) 5.4 x10^3/uL (4.0-11.0) Red Blood Count 4.44 x10^6/uL (3.50-5.40) 3.84 x10^6/uL (3.50-5.40) Hemoglobin 12.5 g/dL (12.0-15.5) 10.6 g/dL (12.0-15.5) Hematocrit 38.2 % (36.0-47.0) 32.9 % (36.0-47.0) Mean Corpuscular Volume 86 fL (79-100) 86 fL (79-100) Mean Corpuscular Hemoglobin 28 pg (25-35) 28 pg (25-35) Mean Corpuscular Hemoglobin Concent 33 g/dL (31-37) 32 g/dL (31-37) Red Cell Distribution Width 14.6 % (11.5-14.5) 14.4 % (11.5-14.5) Platelet Count 262 x10^3/uL (140-400) 227 x10^3/uL (140-400) Neutrophils (%) (Auto) 73 % (31-73) 57 % (31-73) Lymphocytes (%) (Auto) 16 % (24-48) 31 % (24-48) Monocytes (%) (Auto) 8 % (0-9) 6 % (0-9) Eosinophils (%) (Auto) 3 % (0-3) 5 % (0-3) Basophils (%) (Auto) 1 % (0-3) 1 % (0-3) Neutrophils # (Auto) 4.7 x10^3uL (1.8-7.7) 3.1 x10^3uL (1.8-7.7) Lymphocytes # (Auto) 1.0 x10^3/uL (1.0-4.8) 1.7 x10^3/uL (1.0-4.8) Monocytes # (Auto) 0.5 x10^3/uL (0.0-1.1) 0.3 x10^3/uL (0.0-1.1) Eosinophils # (Auto) 0.2 x10^3/uL (0.0-0.7) 0.3 x10^3/uL (0.0-0.7) Basophils # (Auto) 0.1 x10^3/uL (0.0-0.2) 0.0 x10^3/uL (0.0-0.2) Sodium Level 146 mmol/L (136-145) 142 mmol/L (136-145) Potassium Level 3.7 mmol/L (3.5-5.1) 3.3 mmol/L (3.5-5.1) Chloride Level 109 mmol/L (98-107) 108 mmol/L (98-107) Carbon Dioxide Level 31 mmol/L (21-32) 27 mmol/L (21-32) Anion Gap 6 (6-14) 7 (6-14) Blood Urea Nitrogen 16 mg/dL (7-20) 12 mg/dL (7-20) Creatinine 1.1 mg/dL (0.6-1.0) 0.9 mg/dL (0.6-1.0) Estimated GFR (Cockcroft-Gault) 61.5 77.5 BUN/Creatinine Ratio 15 (6-20) Glucose Level 93 mg/dL (70-99) 87 mg/dL (70-99) Calcium Level 9.4 mg/dL (8.5-10.1) 8.2 mg/dL (8.5-10.1) Total Bilirubin 0.7 mg/dL (0.2-1.0) 0.4 mg/dL (0.2-1.0) Aspartate Amino Transf (AST/SGOT) 453 U/L (15-37) 171 U/L (15-37) Alanine Aminotransferase (ALT/SGPT) 278 U/L (14-59) 232 U/L (14-59) Alkaline Phosphatase 202 U/L (46-116) 192 U/L (46-116) Troponin I Quantitative < 0.017 ng/mL (0.000-0.055) Total Protein 7.9 g/dL (6.4-8.2) 6.1 g/dL (6.4-8.2) Albumin 3.3 g/dL (3.4-5.0) 2.8 g/dL (3.4-5.0) Albumin/Globulin Ratio 0.7 (1.0-1.7) Amylase Level 2708 U/L (25-115) Lipase 61598 U/L (73-393) 3086 U/L (73-393) Direct Bilirubin 0.1 mg/dL (0.0-0.2) Laboratory Tests Test 09/08/17 05:20 White Blood Count 5.4 x10^3/uL (4.0-11.0) Red Blood Count 3.84 x10^6/uL (3.50-5.40) Hemoglobin 10.6 g/dL (12.0-15.5) Hematocrit 32.9 % (36.0-47.0) Mean Corpuscular Volume 86 fL (79-100) Mean Corpuscular Hemoglobin 28 pg (25-35) Mean Corpuscular Hemoglobin Concent 32 g/dL (31-37) Red Cell Distribution Width 14.4 % (11.5-14.5) Platelet Count 227 x10^3/uL (140-400) Neutrophils (%) (Auto) 57 % (31-73) Lymphocytes (%) (Auto) 31 % (24-48) Monocytes (%) (Auto) 6 % (0-9) Eosinophils (%) (Auto) 5 % (0-3) Basophils (%) (Auto) 1 % (0-3) Neutrophils # (Auto) 3.1 x10^3uL (1.8-7.7) Lymphocytes # (Auto) 1.7 x10^3/uL (1.0-4.8) Monocytes # (Auto) 0.3 x10^3/uL (0.0-1.1) Eosinophils # (Auto) 0.3 x10^3/uL (0.0-0.7) Basophils # (Auto) 0.0 x10^3/uL (0.0-0.2) Sodium Level 142 mmol/L (136-145) Potassium Level 3.3 mmol/L (3.5-5.1) Chloride Level 108 mmol/L (98-107) Carbon Dioxide Level 27 mmol/L (21-32) Anion Gap 7 (6-14) Blood Urea Nitrogen 12 mg/dL (7-20) Creatinine 0.9 mg/dL (0.6-1.0) Estimated GFR (Cockcroft-Gault) 77.5 Glucose Level 87 mg/dL (70-99) Calcium Level 8.2 mg/dL (8.5-10.1) Total Bilirubin 0.4 mg/dL (0.2-1.0) Direct Bilirubin 0.1 mg/dL (0.0-0.2) Aspartate Amino Transf (AST/SGOT) 171 U/L (15-37) Alanine Aminotransferase (ALT/SGPT) 232 U/L (14-59) Alkaline Phosphatase 192 U/L (46-116) Total Protein 6.1 g/dL (6.4-8.2) Albumin 2.8 g/dL (3.4-5.0) Lipase 3086 U/L (73-393) Assessment/Plan gs pancreatitis lipase rapidly improving possible lap kerrie in next couple of days Problems: EUGENIA IRBY MD 09/08/17 1456: SURGICAL PROGRESS NOTE Assessment/Plan as above Problems: [employer] Sep 08, 2017 12:02 EUGENIA IRBY MD Sep 08, 2017 14:56
[2017-09-09] MEDS: IV NORMAL SALINE 1000ML BAG 1,000 ML IV SCH ×2 (01:15→09:44)
[2017-09-09 03:00] VITALS: BP 119/70
[2017-09-09 05:41] LABS: ALBUMIN 2.6 g/dL (3.4-5.0); ALBUMIN/GLOBULIN RATIO 0.7 (1.0-1.7); CALCIUM 8.4 mg/dL (8.5-10.1); CREATININE 0.8 mg/dL (0.6-1.0); GFR 88.8; POTASSIUM 3.3 mmol/L (3.5-5.1); TOTAL BILIRUBIN 0.2 mg/dL (0.2-1.0); TOTAL PROTEIN 6.5 g/dL (6.4-8.2)
[2017-09-09 07:00] VITALS: BP 192/92
[2017-09-09] MEDS: PANTOPRAZOLE 40 MG TABLET.DR. PO SCH (07:30)
[2017-09-09] MEDS: amLODIPine BESYLATE 10 MG TABLET PO SCH (09:44)
--- NOTE | 2017-09-09 10:41 | PDOC ---
SURGICAL PROGRESS NOTE Subjective no pain tolerated liquids Vital Signs Vital Signs Date Time Temp Pulse Resp B/P (MAP) Pulse Ox O2 Delivery O2 Flow Rate FiO2 09/09/17 09:44 66 192/92 09/09/17 07:00 98.2 18 96 Room Air 98.2 General: Alert, Oriented X3, Cooperative, No acute distress Abdomen: Soft, No tenderness Labs Laboratory Tests Test 09/08/17 05:20 09/09/17 03:05 White Blood Count 5.4 x10^3/uL (4.0-11.0) Red Blood Count 3.84 x10^6/uL (3.50-5.40) Hemoglobin 10.6 g/dL (12.0-15.5) Hematocrit 32.9 % (36.0-47.0) Mean Corpuscular Volume 86 fL (79-100) Mean Corpuscular Hemoglobin 28 pg (25-35) Mean Corpuscular Hemoglobin Concent 32 g/dL (31-37) Red Cell Distribution Width 14.4 % (11.5-14.5) Platelet Count 227 x10^3/uL (140-400) Neutrophils (%) (Auto) 57 % (31-73) Lymphocytes (%) (Auto) 31 % (24-48) Monocytes (%) (Auto) 6 % (0-9) Eosinophils (%) (Auto) 5 % (0-3) Basophils (%) (Auto) 1 % (0-3) Neutrophils # (Auto) 3.1 x10^3uL (1.8-7.7) Lymphocytes # (Auto) 1.7 x10^3/uL (1.0-4.8) Monocytes # (Auto) 0.3 x10^3/uL (0.0-1.1) Eosinophils # (Auto) 0.3 x10^3/uL (0.0-0.7) Basophils # (Auto) 0.0 x10^3/uL (0.0-0.2) Sodium Level 142 mmol/L (136-145) 143 mmol/L (136-145) Potassium Level 3.3 mmol/L (3.5-5.1) 3.3 mmol/L (3.5-5.1) Chloride Level 108 mmol/L (98-107) 109 mmol/L (98-107) Carbon Dioxide Level 27 mmol/L (21-32) 26 mmol/L (21-32) Anion Gap 7 (6-14) 8 (6-14) Blood Urea Nitrogen 12 mg/dL (7-20) 6 mg/dL (7-20) Creatinine 0.9 mg/dL (0.6-1.0) 0.8 mg/dL (0.6-1.0) Estimated GFR (Cockcroft-Gault) 77.5 88.8 Glucose Level 87 mg/dL (70-99) 89 mg/dL (70-99) Calcium Level 8.2 mg/dL (8.5-10.1) 8.4 mg/dL (8.5-10.1) Total Bilirubin 0.4 mg/dL (0.2-1.0) 0.2 mg/dL (0.2-1.0) Direct Bilirubin 0.1 mg/dL (0.0-0.2) Aspartate Amino Transf (AST/SGOT) 171 U/L (15-37) 68 U/L (15-37) Alanine Aminotransferase (ALT/SGPT) 232 U/L (14-59) 158 U/L (14-59) Alkaline Phosphatase 192 U/L (46-116) 160 U/L (46-116) Total Protein 6.1 g/dL (6.4-8.2) 6.5 g/dL (6.4-8.2) Albumin 2.8 g/dL (3.4-5.0) 2.6 g/dL (3.4-5.0) Lipase 3086 U/L (73-393) 763 U/L (73-393) BUN/Creatinine Ratio 8 (6-20) Albumin/Globulin Ratio 0.7 (1.0-1.7) Laboratory Tests Test 09/09/17 03:05 Sodium Level 143 mmol/L (136-145) Potassium Level 3.3 mmol/L (3.5-5.1) Chloride Level 109 mmol/L (98-107) Carbon Dioxide Level 26 mmol/L (21-32) Anion Gap 8 (6-14) Blood Urea Nitrogen 6 mg/dL (7-20) Creatinine 0.8 mg/dL (0.6-1.0) Estimated GFR (Cockcroft-Gault) 88.8 BUN/Creatinine Ratio 8 (6-20) Glucose Level 89 mg/dL (70-99) Calcium Level 8.4 mg/dL (8.5-10.1) Total Bilirubin 0.2 mg/dL (0.2-1.0) Aspartate Amino Transf (AST/SGOT) 68 U/L (15-37) Alanine Aminotransferase (ALT/SGPT) 158 U/L (14-59) Alkaline Phosphatase 160 U/L (46-116) Total Protein 6.5 g/dL (6.4-8.2) Albumin 2.6 g/dL (3.4-5.0) Albumin/Globulin Ratio 0.7 (1.0-1.7) Lipase 763 U/L (73-393) Assessment/Plan gs pancreatitis improved, lipase trending down--if continues will plan lap kerrie tomorrow Problems: CASH [employer] SALES [employer]ER Sep 09, 2017 10:41
[2017-09-09 11:00] VITALS: BP 158/82
[2017-09-09] MEDS ORDERED: POTASSIUM CHLORIDE 10MEQ 100 ML IV ONE (11:00)
--- NOTE | 2017-09-09 11:06 | PDOC ---
PROGRESS NOTES Chief Complaint Chief Complaint 1. acute Gallstone pancreatitis 2. HTN, intermittently controlled 3. obesity, BMI 43 4. hypokalemia 5. vasomotor nephropathy, POA almost hypernatremic on admit, subclinical change 6. mild malnutrition, POA has worsened 7. History of Present Illness History of Present Illness Abd pain better, not needig IV pain meds mostly\ No emesis Lipase down to 3K from 50K CT supports pancreatitis, mild US shows GB stones She is eager to have kerrie this admit Vitals Vitals Vital Signs Date Time Temp Pulse Resp B/P (MAP) Pulse Ox O2 Delivery O2 Flow Rate FiO2 09/09/17 09:44 66 192/92 09/09/17 07:00 98.2 18 96 Room Air 98.2 Physical Exam General: Alert, Oriented X3, Cooperative, No acute distress Heart: Normal S1, Normal S2, No murmurs, Other (tachy) Abdomen: Soft, No tenderness Extremities: No clubbing, No cyanosis Skin: No rashes, No breakdown Labs LABS Laboratory Tests Test 09/09/17 03:05 Sodium Level 143 mmol/L (136-145) Potassium Level 3.3 mmol/L (3.5-5.1) Chloride Level 109 mmol/L (98-107) Carbon Dioxide Level 26 mmol/L (21-32) Anion Gap 8 (6-14) Blood Urea Nitrogen 6 mg/dL (7-20) Creatinine 0.8 mg/dL (0.6-1.0) Estimated GFR (Cockcroft-Gault) 88.8 BUN/Creatinine Ratio 8 (6-20) Glucose Level 89 mg/dL (70-99) Calcium Level 8.4 mg/dL (8.5-10.1) Total Bilirubin 0.2 mg/dL (0.2-1.0) Aspartate Amino Transf (AST/SGOT) 68 U/L (15-37) Alanine Aminotransferase (ALT/SGPT) 158 U/L (14-59) Alkaline Phosphatase 160 U/L (46-116) Total Protein 6.5 g/dL (6.4-8.2) Albumin 2.6 g/dL (3.4-5.0) Albumin/Globulin Ratio 0.7 (1.0-1.7) Lipase 763 U/L (73-393) Review of Systems Review of Systems no n.vd. pain better would like to eat more has not stooled Comment Review of Relevant I have reviewed the following items flor (where applicable) has been applied. Labs Laboratory Tests Test 09/08/17 05:20 09/09/17 03:05 White Blood Count 5.4 x10^3/uL (4.0-11.0) Red Blood Count 3.84 x10^6/uL (3.50-5.40) Hemoglobin 10.6 g/dL (12.0-15.5) Hematocrit 32.9 % (36.0-47.0) Mean Corpuscular Volume 86 fL (79-100) Mean Corpuscular Hemoglobin 28 pg (25-35) Mean Corpuscular Hemoglobin Concent 32 g/dL (31-37) Red Cell Distribution Width 14.4 % (11.5-14.5) Platelet Count 227 x10^3/uL (140-400) Neutrophils (%) (Auto) 57 % (31-73) Lymphocytes (%) (Auto) 31 % (24-48) Monocytes (%) (Auto) 6 % (0-9) Eosinophils (%) (Auto) 5 % (0-3) Basophils (%) (Auto) 1 % (0-3) Neutrophils # (Auto) 3.1 x10^3uL (1.8-7.7) Lymphocytes # (Auto) 1.7 x10^3/uL (1.0-4.8) Monocytes # (Auto) 0.3 x10^3/uL (0.0-1.1) Eosinophils # (Auto) 0.3 x10^3/uL (0.0-0.7) Basophils # (Auto) 0.0 x10^3/uL (0.0-0.2) Sodium Level 142 mmol/L (136-145) 143 mmol/L (136-145) Potassium Level 3.3 mmol/L (3.5-5.1) 3.3 mmol/L (3.5-5.1) Chloride Level 108 mmol/L (98-107) 109 mmol/L (98-107) Carbon Dioxide Level 27 mmol/L (21-32) 26 mmol/L (21-32) Anion Gap 7 (6-14) 8 (6-14) Blood Urea Nitrogen 12 mg/dL (7-20) 6 mg/dL (7-20) Creatinine 0.9 mg/dL (0.6-1.0) 0.8 mg/dL (0.6-1.0) Estimated GFR (Cockcroft-Gault) 77.5 88.8 Glucose Level 87 mg/dL (70-99) 89 mg/dL (70-99) Calcium Level 8.2 mg/dL (8.5-10.1) 8.4 mg/dL (8.5-10.1) Total Bilirubin 0.4 mg/dL (0.2-1.0) 0.2 mg/dL (0.2-1.0) Direct Bilirubin 0.1 mg/dL (0.0-0.2) Aspartate Amino Transf (AST/SGOT) 171 U/L (15-37) 68 U/L (15-37) Alanine Aminotransferase (ALT/SGPT) 232 U/L (14-59) 158 U/L (14-59) Alkaline Phosphatase 192 U/L (46-116) 160 U/L (46-116) Total Protein 6.1 g/dL (6.4-8.2) 6.5 g/dL (6.4-8.2) Albumin 2.8 g/dL (3.4-5.0) 2.6 g/dL (3.4-5.0) Lipase 3086 U/L (73-393) 763 U/L (73-393) BUN/Creatinine Ratio 8 (6-20) Albumin/Globulin Ratio 0.7 (1.0-1.7) Laboratory Tests Test 09/09/17 03:05 Sodium Level 143 mmol/L (136-145) Potassium Level 3.3 mmol/L (3.5-5.1) Chloride Level 109 mmol/L (98-107) Carbon Dioxide Level 26 mmol/L (21-32) Anion Gap 8 (6-14) Blood Urea Nitrogen 6 mg/dL (7-20) Creatinine 0.8 mg/dL (0.6-1.0) Estimated GFR (Cockcroft-Gault) 88.8 BUN/Creatinine Ratio 8 (6-20) Glucose Level 89 mg/dL (70-99) Calcium Level 8.4 mg/dL (8.5-10.1) Total Bilirubin 0.2 mg/dL (0.2-1.0) Aspartate Amino Transf (AST/SGOT) 68 U/L (15-37) Alanine Aminotransferase (ALT/SGPT) 158 U/L (14-59) Alkaline Phosphatase 160 U/L (46-116) Total Protein 6.5 g/dL (6.4-8.2) Albumin 2.6 g/dL (3.4-5.0) Albumin/Globulin Ratio 0.7 (1.0-1.7) Lipase 763 U/L (73-393) Medications Current Medications Multi-Ingredient Mouthwash/Gargle (Gi Cocktail Single Dose) 15 ml 1X ONCE SWSW Last administered on 09/07/17 07:56; Start 09/07/17 at 07:30; Stop at 07:39; Status DC Metoprolol Succinate (Toprol Xl) 50 mg 1X ONCE PO Last administered on 08:50; Start 09/07/17 at 09:00; Stop 09/07/17 at 09:01; Status DC Ondansetron HCl (Zofran) 4 mg PRN Q8HRS PRN IV NAUSEA/VOMITING; Start at 09:00; Stop 09/08/17 at 08:59; Status DC Morphine Sulfate 2 mg PRN Q2HR PRN IV PAIN; Start 09/07/17 at 09:00; Stop at 09:02; Status DC Sodium Chloride 1,000 ml @ 100 mls/hr Q10H IV Last administered on 09/07/17 21:44; Start 09/07/17 at 09:00; Stop 09/08/17 at 08:59; Status DC Pantoprazole Sodium (Protonix) 40 mg DAILYAC PO Last administered on 07:57; Start 09/07/17 at 09:00 Iohexol (Omnipaque 240 Mg/ml) 50 ml 1X ONCE PO Last administered on 12:30; Start 09/07/17 at 12:30; Stop 09/07/17 at 12:31; Status DC Iohexol (Omnipaque 300 Mg/ml) 75 ml 1X ONCE IV Last administered on 13:35; Start 09/07/17 at 12:30; Stop 09/07/17 at 12:31; Status DC Info (Do NOT chart on this entry -- for MONITORING) 1 each PRN DAILY PRN MC SEE COMMENTS; Start 09/07/17 at 12:15; Stop 09/09/17 at 12:14 Metoprolol Tartrate (Lopressor) 50 mg BID PO Last administered on 09/08/17 07 :58; Start 09/07/17 at 18:00; Stop 09/08/17 at 09:14; Status DC Morphine Sulfate 2 mg PRN Q4HRS PRN IV PAIN; Start 09/07/17 at 17:30 Ondansetron HCl (Zofran) 4 mg PRN Q6HRS PRN IV NAUSEA/VOMITING; Start at 09:15 Sodium Chloride 1,000 ml @ 125 mls/hr Q8H IV Last administered on 09/09/17 09:44; Start 09/08/17 at 09:15; Stop 09/09/17 at 10:23; Status DC Hydralazine HCl (Apresoline Inj) 10 mg PRN Q4HRS PRN IVP ELEVATED BP, SEE COMMENTS; Start 09/08/17 at 09:15 Amlodipine Besylate (Norvasc) 10 mg DAILY PO Last administered on 09/09/17 09 :44; Start 09/08/17 at 09:30 Metoprolol Succinate (Toprol Xl) 25 mg DAILY PO ; Start 09/08/17 at 09:30; Stop 09/08/17 at 09:30; Status DC Oxycodone/ Acetaminophen (Percocet 5/325) 1 tab PRN Q4HRS PRN PO PAIN; Start 09/08/17 at 09:15; Status UNV Oxycodone/ Acetaminophen (Percocet 10/325) 1 tab PRN Q4HRS PRN PO opain; Start 09/08/17 at 09:15; Status UNV Metoprolol Succinate (Toprol Xl) 25 mg HS PO Last administered on 09/08/17 20 :47; Start 09/08/17 at 21:00 Potassium Chloride/Dextrose/ Sod Cl 1,000 ml @ 100 mls/hr Q10H IV ; Start at 10:30 Potassium Chloride 100 ml @ 100 mls/hr 1X ONCE IV ; Start 09/09/17 at 11:00; Stop 09/09/17 at 11:59 Active Scripts Active Reported Metoprolol Succinate ( Xl ) (Metoprolol Succinate) 25 Mg Tab.er.24h 25 Mg PO DAILY Amlodipine Besylate 10 Mg Tablet 10 Mg PO DAILY Vitals/I & O Vital Sign - Last 24 Hours 09/08/17 09/08/17 09/08/17 09/08/17 11:28 15:15 19:00 20:00 Temp 98.0 97.7 97.7 98.0 97.7 97.7 Pulse 57 72 72 Resp 16 16 16 B/P (MAP) 176/80 (112) 140/67 (91) 138/62 (87) Pulse Ox 97 98 98 O2 Delivery Room Air Room Air Room Air Room Air 09/08/17 09/08/17 09/09/17 09/09/17 20:47 23:00 03:00 07:00 Temp 95.0 98.0 98.2 95.0 98.0 98.2 Pulse 72 89 85 66 Resp 18 18 B/P (MAP) 138/62 127/93 (104) 119/70 (86) 192/92 (125) Pulse Ox 95 95 96 O2 Delivery Room Air Room Air 09/09/17 09:44 Pulse 66 B/P (MAP) 192/92 DIONNE BURNS MD Sep 09, 2017 11:06
[2017-09-09] MEDS ORDERED: DOCUSATE SODIUM 100 MG CAPSULE. PO PRN (11:15)
[2017-09-09] MEDS: DOCUSATE SODIUM 100 MG CAPSULE. PO SCH (12:00)
[2017-09-09] MEDS: POTASSIUM CL 20MEQ D5-0.45NACL 1,000 ML IV SCH (12:29)
--- NOTE | 2017-09-09 14:17 | PDOC ---
Subjective: Subjective: Seen in a hurry to restroom, has been having frequent stools since restarting diet. Denies pain. Objective: Vital Signs: Vital Signs Date Time Temp Pulse Resp B/P (MAP) Pulse Ox O2 Delivery O2 Flow Rate FiO2 09/09/17 11:00 97.7 67 20 158/82 (107) 99 Room Air 97.7 Labs: Laboratory Tests Test 09/09/17 03:05 Sodium Level 143 mmol/L Potassium Level 3.3 mmol/L Chloride Level 109 mmol/L Carbon Dioxide Level 26 mmol/L Anion Gap 8 Blood Urea Nitrogen 6 mg/dL Creatinine 0.8 mg/dL Estimated GFR (Cockcroft-Gault) 88.8 BUN/Creatinine Ratio 8 Glucose Level 89 mg/dL Calcium Level 8.4 mg/dL Total Bilirubin 0.2 mg/dL Aspartate Amino Transf (AST/SGOT) 68 U/L Alanine Aminotransferase (ALT/SGPT) 158 U/L Alkaline Phosphatase 160 U/L Total Protein 6.5 g/dL Albumin 2.6 g/dL Albumin/Globulin Ratio 0.7 Lipase 763 U/L PE: GEN: NAD NEURO/PSYCH: A & O 3 A/P: Gallstone pancreatitis - lipase improved -- Continue per surgery, monitor stools. SKY HERRERA Sep 09, 2017 14:17
[2017-09-09 15:00] VITALS: BP 152/92
[2017-09-09] MEDS ORDERED: METOPROLOL SUCC 24HR ER 50 MG TAB.ER.24H. PO SCH (21:00)
[2017-09-10] VITALS (12 sets, daily range): BP systolic 132–195; BP diastolic 77–99
[2017-09-10] MEDS: POTASSIUM CL 20MEQ D5-0.45NACL 1,000 ML IV SCH ×2 (00:36→09:39)
[2017-09-10] MEDS ORDERED: ONDANSETRON PF 4 MG/2 ML VIAL. IV PRN (07:00)
[2017-09-10] MEDS ORDERED: IV RINGERS,LACTATED 1000ML 1,000 ML IV SCH (07:00)
[2017-09-10] MEDS ORDERED: PROCHLORPERAZINE 10 MG/2 ML VIAL. IV PRN (07:00)
[2017-09-10] MEDS ORDERED: LIDOCAINE 1% PF 2 ML VIAL. ID PRN (07:00)
[2017-09-10] MEDS ORDERED: fentaNYL PF VIAL 100 MCG/2 ML VIAL IV PRN (07:00)
[2017-09-10] MEDS: PANTOPRAZOLE 40 MG TABLET.DR. PO SCH (07:30)
[2017-09-10] MEDS: DOCUSATE SODIUM 100 MG CAPSULE. PO SCH (09:00)
[2017-09-10] MEDS ORDERED: LIDOCAINE 2% PF Vial for OR 5 ML VIAL. ONE (10:26)
[2017-09-10] MEDS ORDERED: MIDAZOLAM HCL/PF 2 MG/2 ML VIAL. ONE (10:26)
[2017-09-10] MEDS ORDERED: fentaNYL PF VIAL 100 MCG/2 ML VIAL ONE ×4 (10:26→16:13)
[2017-09-10] MEDS ORDERED: PROPOFOL 20 ML IV ONE (10:26)
[2017-09-10] MEDS ORDERED: ONDANSETRON PF 4 MG/2 ML VIAL. ONE (10:26)
[2017-09-10] MEDS ORDERED: DEXAMETHASONE SOD PHOS 20 MG/5 ML VIAL. ONE (10:26)
[2017-09-10] MEDS ORDERED: SUCCINYLCHOLINE 200 MG/10 ML VIAL. ONE (10:26)
--- NOTE | 2017-09-10 10:52 | PDOC ---
G I PROGRESS NOTE Subjective No complaints; awaiting surgery. Physical Exam Lungs clear. RRR Abdomen soft, not tender nor distended. Review of Relevant I have reviewed the following items flor (where applicable) has been applied. Labs Laboratory Tests Test 09/09/17 03:05 09/10/17 04:00 Sodium Level 143 mmol/L (136-145) Potassium Level 3.3 mmol/L (3.5-5.1) Chloride Level 109 mmol/L (98-107) Carbon Dioxide Level 26 mmol/L (21-32) Anion Gap 8 (6-14) Blood Urea Nitrogen 6 mg/dL (7-20) Creatinine 0.8 mg/dL (0.6-1.0) Estimated GFR (Cockcroft-Gault) 88.8 BUN/Creatinine Ratio 8 (6-20) Glucose Level 89 mg/dL (70-99) Calcium Level 8.4 mg/dL (8.5-10.1) Total Bilirubin 0.2 mg/dL (0.2-1.0) Aspartate Amino Transf (AST/SGOT) 68 U/L (15-37) Alanine Aminotransferase (ALT/SGPT) 158 U/L (14-59) Alkaline Phosphatase 160 U/L (46-116) Total Protein 6.5 g/dL (6.4-8.2) Albumin 2.6 g/dL (3.4-5.0) Albumin/Globulin Ratio 0.7 (1.0-1.7) Lipase 763 U/L (73-393) 420 U/L (73-393) Laboratory Tests Test 09/10/17 04:00 Lipase 420 U/L (73-393) Medications Current Medications Multi-Ingredient Mouthwash/Gargle (Gi Cocktail Single Dose) 15 ml 1X ONCE SWSW Last administered on 09/07/17 07:56; Start 09/07/17 at 07:30; Stop at 07:39; Status DC Metoprolol Succinate (Toprol Xl) 50 mg 1X ONCE PO Last administered on 08:50; Start 09/07/17 at 09:00; Stop 09/07/17 at 09:01; Status DC Ondansetron HCl (Zofran) 4 mg PRN Q8HRS PRN IV NAUSEA/VOMITING; Start at 09:00; Stop 09/08/17 at 08:59; Status DC Morphine Sulfate 2 mg PRN Q2HR PRN IV PAIN; Start 09/07/17 at 09:00; Stop at 09:02; Status DC Sodium Chloride 1,000 ml @ 100 mls/hr Q10H IV Last administered on 09/07/17 21:44; Start 09/07/17 at 09:00; Stop 09/08/17 at 08:59; Status DC Pantoprazole Sodium (Protonix) 40 mg DAILYAC PO Last administered on 07:57; Start 09/07/17 at 09:00 Iohexol (Omnipaque 240 Mg/ml) 50 ml 1X ONCE PO Last administered on 12:30; Start 09/07/17 at 12:30; Stop 09/07/17 at 12:31; Status DC Iohexol (Omnipaque 300 Mg/ml) 75 ml 1X ONCE IV Last administered on 13:35; Start 09/07/17 at 12:30; Stop 09/07/17 at 12:31; Status DC Info (Do NOT chart on this entry -- for MONITORING) 1 each PRN DAILY PRN MC SEE COMMENTS; Start 09/07/17 at 12:15; Stop 09/09/17 at 12:14; Status DC Metoprolol Tartrate (Lopressor) 50 mg BID PO Last administered on 09/08/17 07 :58; Start 09/07/17 at 18:00; Stop 09/08/17 at 09:14; Status DC Morphine Sulfate 2 mg PRN Q4HRS PRN IV PAIN; Start 09/07/17 at 17:30 Ondansetron HCl (Zofran) 4 mg PRN Q6HRS PRN IV NAUSEA/VOMITING; Start at 09:15 Sodium Chloride 1,000 ml @ 125 mls/hr Q8H IV Last administered on 09/09/17 09:44; Start 09/08/17 at 09:15; Stop 09/09/17 at 10:23; Status DC Hydralazine HCl (Apresoline Inj) 10 mg PRN Q4HRS PRN IVP ELEVATED BP, SEE COMMENTS; Start 09/08/17 at 09:15 Amlodipine Besylate (Norvasc) 10 mg DAILY PO Last administered on 09/09/17 09 :44; Start 09/08/17 at 09:30 Metoprolol Succinate (Toprol Xl) 25 mg DAILY PO ; Start 09/08/17 at 09:30; Stop 09/08/17 at 09:30; Status DC Oxycodone/ Acetaminophen (Percocet 5/325) 1 tab PRN Q4HRS PRN PO PAIN; Start 09/08/17 at 09:15; Status UNV Oxycodone/ Acetaminophen (Percocet 10/325) 1 tab PRN Q4HRS PRN PO opain; Start 09/08/17 at 09:15; Status UNV Metoprolol Succinate (Toprol Xl) 25 mg HS PO Last administered on 09/08/17 20 :47; Start 09/08/17 at 21:00; Stop 09/09/17 at 11:03; Status DC Potassium Chloride/Dextrose/ Sod Cl 1,000 ml @ 100 mls/hr Q10H IV Last administered on 09/10/17 09:39; Start 09/09/17 at 10:30 Potassium Chloride 100 ml @ 100 mls/hr 1X ONCE IV Last administered on 12:31; Start 09/09/17 at 11:00; Stop 09/09/17 at 11:59; Status DC Metoprolol Succinate (Toprol Xl) 50 mg HS PO Last administered on 09/09/17 22 :38; Start 09/09/17 at 21:00 Docusate Sodium (Colace) 100 mg DAILY PO ; Start 09/09/17 at 12:00 Docusate Sodium (Colace) 100 mg PRN DAILY PRN PO CONSTIPATION; Start 09/09/17 at 11:15 Ondansetron HCl (Zofran) 4 mg PRN Q6HRS PRN IV NAUSEA/VOMITING; Start at 07:00; Stop 09/11/17 at 06:59 Fentanyl Citrate (Fentanyl 2ml Vial) 25 mcg PRN Q5MIN PRN IV MILD PAIN; Start 09/10/17 at 07:00; Stop 09/11/17 at 06:59 Fentanyl Citrate (Fentanyl 2ml Vial) 50 mcg PRN Q5MIN PRN IV MODERATE PAIN; Start 09/10/17 at 07:00; Stop 09/11/17 at 06:59 Ringer's Solution 1,000 ml @ 30 mls/hr Q24H IV ; Start 09/10/17 at 07:00; Stop 09/10/17 at 18:59 Lidocaine HCl (Xylocaine-Mpf 1% Vial) 2 ml PRN 1X PRN ID IV START; Start 09/10 at 07:00; Stop 09/11/17 at 06:59 Prochlorperazine Edisylate (Compazine) 5 mg PACU PRN PRN IV NAUSEA, MRX1; Start 09/10/17 at 07:00; Stop 09/11/17 at 06:59 Dexamethasone Sodium Phosphate (Decadron) 20 mg STK-MED ONCE .ROUTE ; Start at 10:26; Stop 09/10/17 at 10:27; Status DC Lidocaine HCl (Lidocaine Pf 2% Vial) 5 ml STK-MED ONCE .ROUTE ; Start 09/10/17 at 10:26; Stop 09/10/17 at 10:27; Status DC Ondansetron HCl (Zofran) 4 mg STK-MED ONCE .ROUTE ; Start 09/10/17 at 10:26; Stop 09/10/17 at 10:27; Status DC Propofol 20 ml @ As Directed STK-MED ONCE IV ; Start 09/10/17 at 10:26; Stop 09/10/17 at 10:27; Status DC Midazolam HCl (Versed) 2 mg STK-MED ONCE .ROUTE ; Start 09/10/17 at 10:26; Stop 09/10/17 at 10:27; Status DC Fentanyl Citrate (Fentanyl 2ml Vial) 100 mcg STK-MED ONCE .ROUTE ; Start at 10:26; Stop 09/10/17 at 10:27; Status DC Succinylcholine Chloride (Anectine) 200 mg STK-MED ONCE .ROUTE ; Start at 10:26; Stop 09/10/17 at 10:27; Status DC Active Scripts Active Reported Metoprolol Succinate ( Xl ) (Metoprolol Succinate) 25 Mg Tab.er.24h 25 Mg PO DAILY Amlodipine Besylate 10 Mg Tablet 10 Mg PO DAILY Vitals/I & O Vital Sign - Last 24 Hours 10/1609/09/17 09/09/17 09/09/17 11:00 15:00 19:29 20:00 Temp 97.7 98.0 97.7 98.0 Pulse 67 69 Resp 20 20 B/P (MAP) 158/82 (107) 152/92 (112) Pulse Ox 99 98 99 O2 Delivery Room Air Room Air Room Air 09/09/17 09/10/17 09/10/17 09/10/17 22:38 03:00 07:00 08:00 Temp 98.0 98.3 98.0 98.3 Pulse 69 64 62 Resp 18 20 B/P (MAP) 152/92 175/85 (115) 174/87 (116) Pulse Ox 97 98 O2 Delivery Room Air Room Air Room Air 09/10/17 10:35 Temp 97.2 97.2 Pulse 59 Resp 20 B/P (MAP) 188/95 Pulse Ox 99 O2 Delivery Room Air Assessment Biliary pancreatitis, improved. Cholelithiasis. Plan of Care: Continue current Tx, Mgmt Plan of Care Note Await operative findings. RAQUEL JOSEPH MD Sep 10, 2017 10:52
[2017-09-10] MEDS: amLODIPine BESYLATE 10 MG TABLET PO SCH (11:50)
[2017-09-10] MEDS ORDERED: hydrALAZINE 20 MG/ML VIAL. IVP PRN (12:15)
--- NOTE | 2017-09-10 12:20 | PDOC ---
PROGRESS NOTES Chief Complaint Chief Complaint 1. acute Gallstone pancreatitis 2. HTN, intermittently controlled 3. obesity, BMI 43 4. hypokalemia 5. vasomotor nephropathy, POA almost hypernatremic on admit, subclinical change 6. mild malnutrition, POA has worsened 7. History of Present Illness History of Present Illness Abd pain better, not needig IV pain meds mostly\ No emesis Lipase down to 400, trending nicely from 50K CT supports pancreatitis, mild US shows GB stones She is eager to have kerrie this admit Vitals Vitals Vital Signs Date Time Temp Pulse Resp B/P (MAP) Pulse Ox O2 Delivery O2 Flow Rate FiO2 09/10/17 11:50 64 192/99 09/10/17 11:00 97.8 20 97 Room Air 97.8 Physical Exam General: Alert, Oriented X3, Cooperative, No acute distress Heart: Normal S1, Normal S2, No murmurs, Other (tachy) Abdomen: Soft, No tenderness Extremities: No clubbing, No cyanosis Skin: No rashes, No breakdown Labs LABS Laboratory Tests Test 09/10/17 04:00 Lipase 420 U/L (73-393) Review of Systems Review of Systems hungry, thirsty pain better no event Assessment and Plan Assessmemt and Plan kerrie today Problems: Comment Review of Relevant I have reviewed the following items flor (where applicable) has been applied. Labs Laboratory Tests Test 09/09/17 03:05 09/10/17 04:00 Sodium Level 143 mmol/L (136-145) Potassium Level 3.3 mmol/L (3.5-5.1) Chloride Level 109 mmol/L (98-107) Carbon Dioxide Level 26 mmol/L (21-32) Anion Gap 8 (6-14) Blood Urea Nitrogen 6 mg/dL (7-20) Creatinine 0.8 mg/dL (0.6-1.0) Estimated GFR (Cockcroft-Gault) 88.8 BUN/Creatinine Ratio 8 (6-20) Glucose Level 89 mg/dL (70-99) Calcium Level 8.4 mg/dL (8.5-10.1) Total Bilirubin 0.2 mg/dL (0.2-1.0) Aspartate Amino Transf (AST/SGOT) 68 U/L (15-37) Alanine Aminotransferase (ALT/SGPT) 158 U/L (14-59) Alkaline Phosphatase 160 U/L (46-116) Total Protein 6.5 g/dL (6.4-8.2) Albumin 2.6 g/dL (3.4-5.0) Albumin/Globulin Ratio 0.7 (1.0-1.7) Lipase 763 U/L (73-393) 420 U/L (73-393) Laboratory Tests Test 09/10/17 04:00 Lipase 420 U/L (73-393) Medications Current Medications Multi-Ingredient Mouthwash/Gargle (Gi Cocktail Single Dose) 15 ml 1X ONCE SWSW Last administered on 09/07/17 07:56; Start 09/07/17 at 07:30; Stop at 07:39; Status DC Metoprolol Succinate (Toprol Xl) 50 mg 1X ONCE PO Last administered on 08:50; Start 09/07/17 at 09:00; Stop 09/07/17 at 09:01; Status DC Ondansetron HCl (Zofran) 4 mg PRN Q8HRS PRN IV NAUSEA/VOMITING; Start at 09:00; Stop 09/08/17 at 08:59; Status DC Morphine Sulfate 2 mg PRN Q2HR PRN IV PAIN; Start 09/07/17 at 09:00; Stop at 09:02; Status DC Sodium Chloride 1,000 ml @ 100 mls/hr Q10H IV Last administered on 09/07/17 21:44; Start 09/07/17 at 09:00; Stop 09/08/17 at 08:59; Status DC Pantoprazole Sodium (Protonix) 40 mg DAILYAC PO Last administered on 07:57; Start 09/07/17 at 09:00 Iohexol (Omnipaque 240 Mg/ml) 50 ml 1X ONCE PO Last administered on 12:30; Start 09/07/17 at 12:30; Stop 09/07/17 at 12:31; Status DC Iohexol (Omnipaque 300 Mg/ml) 75 ml 1X ONCE IV Last administered on 13:35; Start 09/07/17 at 12:30; Stop 09/07/17 at 12:31; Status DC Info (Do NOT chart on this entry -- for MONITORING) 1 each PRN DAILY PRN MC SEE COMMENTS; Start 09/07/17 at 12:15; Stop 09/09/17 at 12:14; Status DC Metoprolol Tartrate (Lopressor) 50 mg BID PO Last administered on 09/08/17 07 :58; Start 09/07/17 at 18:00; Stop 09/08/17 at 09:14; Status DC Morphine Sulfate 2 mg PRN Q4HRS PRN IV PAIN; Start 09/07/17 at 17:30 Ondansetron HCl (Zofran) 4 mg PRN Q6HRS PRN IV NAUSEA/VOMITING; Start at 09:15 Sodium Chloride 1,000 ml @ 125 mls/hr Q8H IV Last administered on 09/09/17 09:44; Start 09/08/17 at 09:15; Stop 09/09/17 at 10:23; Status DC Hydralazine HCl (Apresoline Inj) 10 mg PRN Q4HRS PRN IVP ELEVATED BP, SEE COMMENTS; Start 09/08/17 at 09:15; Stop 09/10/17 at 12:05; Status DC Amlodipine Besylate (Norvasc) 10 mg DAILY PO Last administered on 09/10/17 11 :50; Start 09/08/17 at 09:30 Metoprolol Succinate (Toprol Xl) 25 mg DAILY PO ; Start 09/08/17 at 09:30; Stop 09/08/17 at 09:30; Status DC Oxycodone/ Acetaminophen (Percocet 5/325) 1 tab PRN Q4HRS PRN PO PAIN; Start 09/08/17 at 09:15; Status UNV Oxycodone/ Acetaminophen (Percocet 10/325) 1 tab PRN Q4HRS PRN PO opain; Start 09/08/17 at 09:15; Status UNV Metoprolol Succinate (Toprol Xl) 25 mg HS PO Last administered on 09/08/17 20 :47; Start 09/08/17 at 21:00; Stop 09/09/17 at 11:03; Status DC Potassium Chloride/Dextrose/ Sod Cl 1,000 ml @ 100 mls/hr Q10H IV Last administered on 10/17/17at 09:39; Start 09/09/17 at 10:30 Potassium Chloride 100 ml @ 100 mls/hr 1X ONCE IV Last administered on t 12:31; Start 09/09/17 at 11:00; Stop 09/09/17 at 11:59; Status DC Metoprolol Succinate (Toprol Xl) 50 mg HS PO Last administered on 09/09/17t 22 :38; Start 09/09/17 at 21:00; Stop 09/10/17 at 12:02; Status DC Docusate Sodium (Colace) 100 mg DAILY PO ; Start 09/09/17 at 12:00 Docusate Sodium (Colace) 100 mg PRN DAILY PRN PO CONSTIPATION; Start 09/09/17 at 11:15 Ondansetron HCl (Zofran) 4 mg PRN Q6HRS PRN IV NAUSEA/VOMITING; Start at 07:00; Stop 09/11/17 at 06:59 Fentanyl Citrate (Fentanyl 2ml Vial) 25 mcg PRN Q5MIN PRN IV MILD PAIN; Start 09/10/17 at 07:00; Stop 09/11/17 at 06:59 Fentanyl Citrate (Fentanyl 2ml Vial) 50 mcg PRN Q5MIN PRN IV MODERATE PAIN; Start 09/10/17 at 07:00; Stop 09/11/17 at 06:59 Ringer's Solution 1,000 ml @ 30 mls/hr Q24H IV ; Start 09/10/17 at 07:00; Stop 09/10/17 at 18:59 Lidocaine HCl (Xylocaine-Mpf 1% Vial) 2 ml PRN 1X PRN ID IV START; Start 09/10 at 07:00; Stop 09/11/17 at 06:59 Prochlorperazine Edisylate (Compazine) 5 mg PACU PRN PRN IV NAUSEA, MRX1; Start 09/10/17 at 07:00; Stop 09/11/17 at 06:59 Dexamethasone Sodium Phosphate (Decadron) 20 mg STK-MED ONCE .ROUTE ; Start at 10:26; Stop 09/10/17 at 10:27; Status DC Lidocaine HCl (Lidocaine Pf 2% Vial) 5 ml STK-MED ONCE .ROUTE ; Start 09/10/17 at 10:26; Stop 09/10/17 at 10:27; Status DC Ondansetron HCl (Zofran) 4 mg STK-MED ONCE .ROUTE ; Start 09/10/17 at 10:26; Stop 09/10/17 at 10:27; Status DC Propofol 20 ml @ As Directed STK-MED ONCE IV ; Start 09/10/17 at 10:26; Stop 09/10/17 at 10:27; Status DC Midazolam HCl (Versed) 2 mg STK-MED ONCE .ROUTE ; Start 09/10/17 at 10:26; Stop 09/10/17 at 10:27; Status DC Fentanyl Citrate (Fentanyl 2ml Vial) 100 mcg STK-MED ONCE .ROUTE ; Start at 10:26; Stop 09/10/17 at 10:27; Status DC Succinylcholine Chloride (Anectine) 200 mg STK-MED ONCE .ROUTE ; Start at 10:26; Stop 09/10/17 at 10:27; Status DC Metoprolol Succinate (Toprol Xl) 100 mg HS PO ; Start 09/10/17 at 21:00 Hydralazine HCl (Apresoline Inj) 10 mg PRN Q4HRS PRN IVP ELEVATED BP, SEE COMMENTS; Start 09/10/17 at 12:15 Active Scripts Active Reported Metoprolol Succinate ( Xl ) (Metoprolol Succinate) 25 Mg Tab.er.24h 25 Mg PO DAILY Amlodipine Besylate 10 Mg Tablet 10 Mg PO DAILY Vitals/I & O Vital Sign - Last 24 Hours 09/09/17 09/09/17 09/09/17 09/09/17 15:00 19:29 20:00 22:38 Temp 98.0 98.0 Pulse 69 69 Resp 20 B/P (MAP) 152/92 (112) 152/92 Pulse Ox 98 99 O2 Delivery Room Air Room Air 09/10/17 09/10/17 09/10/17 09/10/17 03:00 07:00 08:00 10:35 Temp 98.0 98.3 97.2 98.0 98.3 97.2 Pulse 64 62 59 Resp 18 20 20 B/P (MAP) 175/85 (115) 174/87 (116) 188/95 Pulse Ox 97 98 99 O2 Delivery Room Air Room Air Room Air Room Air 09/10/17 09/10/17 11:00 11:50 Temp 97.8 97.8 Pulse 64 64 Resp 20 B/P (MAP) 192/99 (130) 192/99 Pulse Ox 97 O2 Delivery Room Air Intake and Output 09/10/17 09/10/17 09/11/17 15:00 23:00 07:00 Intake Total 0 ml Balance 0 ml DIONNE BURNS MD Sep 10, 2017 12:20
[2017-09-10] MEDS ORDERED: IOHEXOL 300 MG/ML 50 ML VIAL. ONE (12:56)
[2017-09-10] MEDS ORDERED: BUPIVACAINE-EPI 0.25%-1:200000 50 ML VIAL. ONE (12:56)
[2017-09-10] MEDS ORDERED: SURGICEL HEMOSTAT 4X8 EACH. ONE (12:57)
[2017-09-10] MEDS ORDERED: GLUCAGON,HUMAN RECOMBINANT 1 MG/ML VIAL. ONE (12:57)
[2017-09-10] MEDS ORDERED: VECURONIUM BOLUS 10 MG VIAL. IV ONE (14:04)
[2017-09-10] MEDS ORDERED: ROCURONIUM 100 MG/10 ML VIAL. ONE (14:32)
[2017-09-10] MEDS ORDERED: hydrALAZINE 20 MG/ML VIAL. ONE (14:37)
[2017-09-10] MEDS ORDERED: GLYCOPYRROLATE 1 MG/5 ML VIAL. ONE (15:08)
[2017-09-10] MEDS ORDERED: NEOSTIGMINE METHYLSULFATE 5 MG/5 ML SYRINGE. ONE (15:08)
[2017-09-10] MEDS ORDERED: DESFLURANE 61 TO 120 MINUTES IH ONE (15:09)
[2017-09-10] MEDS ORDERED: SEVOFLURANE 61 TO 120 MINUTES. IH ONE (15:09)
--- NOTE | 2017-09-10 15:16 | RAD ---
Indication protocol study. Assess for brain anatomy. Assess for complication or choledocholithiasis. For members of the Department of surgery fluoroscopy was provided. 3 spot fluoroscopic images were obtained. Fluoroscopy time associated with the imaging was 12 seconds. No filling defects to suggest choledocholithiasis are seen. Contrast flows unremarkably into the duodenum. IMPRESSION: Normal operative cholangiogram
[2017-09-10] MEDS: fentaNYL PF VIAL 100 MCG/2 ML VIAL IV PRN ×3 (15:34→16:26)
--- NOTE | 2017-09-10 15:37 | PDOC ---
BRIEF OPERATIVE NOTE Date: Sep 10, 2017 Pre-Op Diagnosis gallstone pancreatitis Post-Op Diagnosis same Procedure Performed l/s kerrie with grams Surgeon Zach Anesthesia Type: General Blood Loss 10cc IV Fluid 800cc Specimens Obtained GB Findings supple GB, normal grams Complications none EUGENIA IRBY MD Sep 10, 2017 15:37
[2017-09-10] MEDS ORDERED: diphenhydrAMINE HCL 25 MG CAPSULE PO PRN (15:45)
[2017-09-10] MEDS ORDERED: 0.9 % SODIUM CHLORIDE 10 ML DISP.SYRIN. IV PRN (15:45)
[2017-09-10] MEDS ORDERED: diphenhydrAMINE 50 MG/ML VIAL IV PRN (15:45)
[2017-09-10] MEDS ORDERED: DEXTROSE 50% 25 GM / 50ML DISP.SYRIN. IV PRN (15:45)
[2017-09-10] MEDS ORDERED: oxyCODONE/APAP 5/325 1 TAB TABLET PO PRN ×2 (15:45)
[2017-09-10] MEDS: POTASSIUM CL 20MEQ-0.45% NACL 1,000 ML IV SCH (16:00)
[2017-09-10] MEDS: ONDANSETRON PF 4 MG/2 ML VIAL. IV PRN (17:53)
[2017-09-10] MEDS: HYDROmorphone 2 MG/ML VIAL IV PRN ×2 (17:59→23:01)
[2017-09-10] MEDS: METOPROLOL SUCC 24HR ER 50 MG TAB.ER.24H. PO SCH (22:37)
[2017-09-11] MEDS: POTASSIUM CL 20MEQ-0.45% NACL 1,000 ML IV SCH ×3 (02:00→20:44)
[2017-09-11 03:11] VITALS: BP 154/80
[2017-09-11] MEDS: ONDANSETRON PF 4 MG/2 ML VIAL. IV PRN ×2 (03:16→13:04)
[2017-09-11 07:00] VITALS: BP 163/85
[2017-09-11 07:23] LABS: BASO % 0 % (0-3); EOS % 0 % (0-3); HEMATOCRIT 35.4 % (36.0-47.0); HEMOGLOBIN 11.7 g/dL (12.0-15.5); LYMPH # 0.7 x10^3/uL (1.0-4.8); LYMPH % 8 % (24-48); MEAN CORPUSCULAR HEMOGLOBIN 28 pg (25-35); MEAN CORPUSCULAR HGB CONC 33 g/dL (31-37); MEAN CORPUSCULAR VOLUME 86 fL (79-100); MONO % 3 % (0-9); NEUT % 90 % (31-73); PLATELET COUNT 275 x10^3/uL (140-400); RED BLOOD COUNT 4.11 x10^6/uL (3.50-5.40); RED CELL DISTRIBUTION WIDTH 14.4 % (11.5-14.5)
[2017-09-11 07:52] LABS: ALBUMIN/GLOBULIN RATIO 0.7 (1.0-1.7); CALCIUM 9.4 mg/dL (8.5-10.1); GFR 68.7; POTASSIUM 4.6 mmol/L (3.5-5.1); TOTAL BILIRUBIN 0.2 mg/dL (0.2-1.0); TOTAL PROTEIN 7.5 g/dL (6.4-8.2)
[2017-09-11] MEDS: PANTOPRAZOLE 40 MG TABLET.DR. PO SCH (08:44)
[2017-09-11] MEDS: DOCUSATE SODIUM 100 MG CAPSULE. PO SCH (08:45)
[2017-09-11] MEDS: amLODIPine BESYLATE 10 MG TABLET PO SCH (08:45)
[2017-09-11] MEDS: HYDROmorphone 2 MG/ML VIAL IV PRN (08:46)
[2017-09-11] MEDS: ENOXAPARIN 40 MG/0.4 ML SYRINGE. SQ SCH ×2 (08:47→20:41)
--- NOTE | 2017-09-11 09:24 | PDOC ---
G I PROGRESS NOTE Subjective Sore from surgery, otherwise few complaints. Physical Exam Lungs clear. RRR Abdomen soft, not distended. Incisional tenderness. Review of Relevant I have reviewed the following items flor (where applicable) has been applied. Labs Laboratory Tests Test 09/10/17 04:00 09/11/17 06:37 Lipase 420 U/L (73-393) White Blood Count 9.0 x10^3/uL (4.0-11.0) Red Blood Count 4.11 x10^6/uL (3.50-5.40) Hemoglobin 11.7 g/dL (12.0-15.5) Hematocrit 35.4 % (36.0-47.0) Mean Corpuscular Volume 86 fL (79-100) Mean Corpuscular Hemoglobin 28 pg (25-35) Mean Corpuscular Hemoglobin Concent 33 g/dL (31-37) Red Cell Distribution Width 14.4 % (11.5-14.5) Platelet Count 275 x10^3/uL (140-400) Neutrophils (%) (Auto) 90 % (31-73) Lymphocytes (%) (Auto) 8 % (24-48) Monocytes (%) (Auto) 3 % (0-9) Eosinophils (%) (Auto) 0 % (0-3) Basophils (%) (Auto) 0 % (0-3) Neutrophils # (Auto) 8.0 x10^3uL (1.8-7.7) Lymphocytes # (Auto) 0.7 x10^3/uL (1.0-4.8) Monocytes # (Auto) 0.2 x10^3/uL (0.0-1.1) Eosinophils # (Auto) 0.0 x10^3/uL (0.0-0.7) Basophils # (Auto) 0.0 x10^3/uL (0.0-0.2) Sodium Level 137 mmol/L (136-145) Potassium Level 4.6 mmol/L (3.5-5.1) Chloride Level 104 mmol/L (98-107) Carbon Dioxide Level 23 mmol/L (21-32) Anion Gap 10 (6-14) Blood Urea Nitrogen 10 mg/dL (7-20) Creatinine 1.0 mg/dL (0.6-1.0) Estimated GFR (Cockcroft-Gault) 68.7 BUN/Creatinine Ratio 10 (6-20) Glucose Level 131 mg/dL (70-99) Calcium Level 9.4 mg/dL (8.5-10.1) Total Bilirubin 0.2 mg/dL (0.2-1.0) Aspartate Amino Transf (AST/SGOT) 39 U/L (15-37) Alanine Aminotransferase (ALT/SGPT) 104 U/L (14-59) Alkaline Phosphatase 157 U/L (46-116) Total Protein 7.5 g/dL (6.4-8.2) Albumin 3.0 g/dL (3.4-5.0) Albumin/Globulin Ratio 0.7 (1.0-1.7) Laboratory Tests Test 09/11/17 06:37 White Blood Count 9.0 x10^3/uL (4.0-11.0) Red Blood Count 4.11 x10^6/uL (3.50-5.40) Hemoglobin 11.7 g/dL (12.0-15.5) Hematocrit 35.4 % (36.0-47.0) Mean Corpuscular Volume 86 fL (79-100) Mean Corpuscular Hemoglobin 28 pg (25-35) Mean Corpuscular Hemoglobin Concent 33 g/dL (31-37) Red Cell Distribution Width 14.4 % (11.5-14.5) Platelet Count 275 x10^3/uL (140-400) Neutrophils (%) (Auto) 90 % (31-73) Lymphocytes (%) (Auto) 8 % (24-48) Monocytes (%) (Auto) 3 % (0-9) Eosinophils (%) (Auto) 0 % (0-3) Basophils (%) (Auto) 0 % (0-3) Neutrophils # (Auto) 8.0 x10^3uL (1.8-7.7) Lymphocytes # (Auto) 0.7 x10^3/uL (1.0-4.8) Monocytes # (Auto) 0.2 x10^3/uL (0.0-1.1) Eosinophils # (Auto) 0.0 x10^3/uL (0.0-0.7) Basophils # (Auto) 0.0 x10^3/uL (0.0-0.2) Sodium Level 137 mmol/L (136-145) Potassium Level 4.6 mmol/L (3.5-5.1) Chloride Level 104 mmol/L (98-107) Carbon Dioxide Level 23 mmol/L (21-32) Anion Gap 10 (6-14) Blood Urea Nitrogen 10 mg/dL (7-20) Creatinine 1.0 mg/dL (0.6-1.0) Estimated GFR (Cockcroft-Gault) 68.7 BUN/Creatinine Ratio 10 (6-20) Glucose Level 131 mg/dL (70-99) Calcium Level 9.4 mg/dL (8.5-10.1) Total Bilirubin 0.2 mg/dL (0.2-1.0) Aspartate Amino Transf (AST/SGOT) 39 U/L (15-37) Alanine Aminotransferase (ALT/SGPT) 104 U/L (14-59) Alkaline Phosphatase 157 U/L (46-116) Total Protein 7.5 g/dL (6.4-8.2) Albumin 3.0 g/dL (3.4-5.0) Albumin/Globulin Ratio 0.7 (1.0-1.7) Medications Current Medications Multi-Ingredient Mouthwash/Gargle (Gi Cocktail Single Dose) 15 ml 1X ONCE SWSW Last administered on 09/07/17 07:56; Start 09/07/17 at 07:30; Stop at 07:39; Status DC Metoprolol Succinate (Toprol Xl) 50 mg 1X ONCE PO Last administered on 08:50; Start 09/07/17 at 09:00; Stop 09/07/17 at 09:01; Status DC Ondansetron HCl (Zofran) 4 mg PRN Q8HRS PRN IV NAUSEA/VOMITING; Start at 09:00; Stop 09/08/17 at 08:59; Status DC Morphine Sulfate 2 mg PRN Q2HR PRN IV PAIN; Start 09/07/17 at 09:00; Stop at 09:02; Status DC Sodium Chloride 1,000 ml @ 100 mls/hr Q10H IV Last administered on 09/07/17 21:44; Start 09/07/17 at 09:00; Stop 09/08/17 at 08:59; Status DC Pantoprazole Sodium (Protonix) 40 mg DAILYAC PO Last administered on 08:44; Start 09/07/17 at 09:00 Iohexol (Omnipaque 240 Mg/ml) 50 ml 1X ONCE PO Last administered on 12:30; Start 09/07/17 at 12:30; Stop 09/07/17 at 12:31; Status DC Iohexol (Omnipaque 300 Mg/ml) 75 ml 1X ONCE IV Last administered on 13:35; Start 09/07/17 at 12:30; Stop 09/07/17 at 12:31; Status DC Info (Do NOT chart on this entry -- for MONITORING) 1 each PRN DAILY PRN MC SEE COMMENTS; Start 09/07/17 at 12:15; Stop 09/09/17 at 12:14; Status DC Metoprolol Tartrate (Lopressor) 50 mg BID PO Last administered on 09/08/17 07 :58; Start 09/07/17 at 18:00; Stop 09/08/17 at 09:14; Status DC Morphine Sulfate 2 mg PRN Q4HRS PRN IV PAIN; Start 09/07/17 at 17:30 Ondansetron HCl (Zofran) 4 mg PRN Q6HRS PRN IV NAUSEA/VOMITING; Start at 09:15; Stop 09/10/17 at 15:39; Status DC Sodium Chloride 1,000 ml @ 125 mls/hr Q8H IV Last administered on 09/09/17 09:44; Start 09/08/17 at 09:15; Stop 09/09/17 at 10:23; Status DC Hydralazine HCl (Apresoline Inj) 10 mg PRN Q4HRS PRN IVP ELEVATED BP, SEE COMMENTS; Start 09/08/17 at 09:15; Stop 09/10/17 at 12:05; Status DC Amlodipine Besylate (Norvasc) 10 mg DAILY PO Last administered on 09/11/17 08 :45; Start 09/08/17 at 09:30 Metoprolol Succinate (Toprol Xl) 25 mg DAILY PO ; Start 09/08/17 at 09:30; Stop 09/08/17 at 09:30; Status DC Oxycodone/ Acetaminophen (Percocet 5/325) 1 tab PRN Q4HRS PRN PO PAIN; Start 09/08/17 at 09:15; Status UNV Oxycodone/ Acetaminophen (Percocet 10/325) 1 tab PRN Q4HRS PRN PO opain; Start 09/08/17 at 09:15; Status UNV Metoprolol Succinate (Toprol Xl) 25 mg HS PO Last administered on 09/08/17 20 :47; Start 09/08/17 at 21:00; Stop 09/09/17 at 11:03; Status DC Potassium Chloride/Dextrose/ Sod Cl 1,000 ml @ 100 mls/hr Q10H IV Last administered on 09/10/17 09:39; Start 09/09/17 at 10:30; Stop 09/10/17 at 15 :39; Status DC Potassium Chloride 100 ml @ 100 mls/hr 1X ONCE IV Last administered on 12:31; Start 09/09/17 at 11:00; Stop 09/09/17 at 11:59; Status DC Metoprolol Succinate (Toprol Xl) 50 mg HS PO Last administered on 09/09/17 22 :38; Start 09/09/17 at 21:00; Stop 09/10/17 at 12:02; Status DC Docusate Sodium (Colace) 100 mg DAILY PO ; Start 09/09/17 at 12:00 Docusate Sodium (Colace) 100 mg PRN DAILY PRN PO CONSTIPATION; Start 09/09/17 at 11:15 Ondansetron HCl (Zofran) 4 mg PRN Q6HRS PRN IV NAUSEA/VOMITING; Start at 07:00; Stop 09/11/17 at 06:59; Status DC Fentanyl Citrate (Fentanyl 2ml Vial) 25 mcg PRN Q5MIN PRN IV MILD PAIN; Start 09/10/17 at 07:00; Stop 09/11/17 at 06:59; Status DC Fentanyl Citrate (Fentanyl 2ml Vial) 50 mcg PRN Q5MIN PRN IV MODERATE PAIN Last administered on 09/10/17 16:26; Start 09/10/17 at 07:00; Stop 09/11/17 at 06:59; Status DC Ringer's Solution 1,000 ml @ 30 mls/hr Q24H IV ; Start 09/10/17 at 07:00; Stop 09/10/17 at 18:59; Status DC Lidocaine HCl (Xylocaine-Mpf 1% Vial) 2 ml PRN 1X PRN ID IV START; Start 09/10 at 07:00; Stop 09/11/17 at 06:59; Status DC Prochlorperazine Edisylate (Compazine) 5 mg PACU PRN PRN IV NAUSEA, MRX1 Last administered on 09/10/17t 15:47; Start 09/10/17 at 07:00; Stop 09/11/17 at 06 :59; Status DC Dexamethasone Sodium Phosphate (Decadron) 20 mg STK-MED ONCE .ROUTE ; Start at 10:26; Stop 09/10/17 at 10:27; Status DC Lidocaine HCl (Lidocaine Pf 2% Vial) 5 ml STK-MED ONCE .ROUTE ; Start 09/10/17 at 10:26; Stop 09/10/17 at 10:27; Status DC Ondansetron HCl (Zofran) 4 mg STK-MED ONCE .ROUTE ; Start 09/10/17 at 10:26; Stop 09/10/17 at 10:27; Status DC Propofol 20 ml @ As Directed STK-MED ONCE IV ; Start 09/10/17 at 10:26; Stop 09/10/17 at 10:27; Status DC Midazolam HCl (Versed) 2 mg STK-MED ONCE .ROUTE ; Start 09/10/17 at 10:26; Stop 09/10/17 at 10:27; Status DC Fentanyl Citrate (Fentanyl 2ml Vial) 100 mcg STK-MED ONCE .ROUTE ; Start at 10:26; Stop 09/10/17 at 10:27; Status DC Succinylcholine Chloride (Anectine) 200 mg STK-MED ONCE .ROUTE ; Start at 10:26; Stop 09/10/17 at 10:27; Status DC Metoprolol Succinate (Toprol Xl) 100 mg HS PO Last administered on 09/10/17t 22:37; Start 09/10/17 at 21:00 Hydralazine HCl (Apresoline Inj) 10 mg PRN Q4HRS PRN IVP ELEVATED BP, SEE COMMENTS Last administered on 09/10/17t 16:17; Start 09/10/17 at 12:15 Cefazolin Sodium/ Dextrose 50 ml @ As Directed STK-MED ONCE IV ; Start at 13:44; Stop 09/10/17 at 13:45; Status DC Iohexol (Omnipaque 300 Mg/ml) 50 ml STK-MED ONCE .ROUTE Last administered on 14:47; Start 09/10/17 at 12:56; Stop 09/10/17 at 13:57; Status DC Bupivacaine HCl/ Epinephrine Bitart (Marcaine-Epi 0.25%-[id number]) 50 ml STK-MED ONCE .ROUTE Last administered on 09/10/17 14:36; Start 09/10/17 at 12:56; Stop 09/10/17 at 13:57; Status DC Glucagon (Glucagen) 1 mg STK-MED ONCE .ROUTE ; Start 09/10/17 at 12:57; Stop 09/10/17 at 13:57; Status DC Cellulose 1 each STK-MED ONCE .ROUTE ; Start 09/10/17 at 12:57; Stop 09/10/17 at 13:57; Status DC Vecuronium [place] (Norcuron Bolus) 10 mg STK-MED ONCE IV ; Start 09/10/17 at 14:04; Stop 09/10/17 at 14:05; Status DC Fentanyl Citrate (Fentanyl 2ml Vial) 100 mcg STK-MED ONCE .ROUTE ; Start at 14:31; Stop 09/10/17 at 14:32; Status DC Rocuronium [place] (Zemuron) 100 mg STK-MED ONCE .ROUTE ; Start 09/10/17 at 14: 32; Stop 09/10/17 at 14:33; Status DC Hydralazine HCl (Apresoline Inj) 20 mg STK-MED ONCE .ROUTE ; Start 09/10/17 at 14:37; Stop 09/10/17 at 14:38; Status DC Glycopyrrolate (Robinul) 1 mg STK-MED ONCE .ROUTE ; Start 09/10/17 at 15:08; Stop 09/10/17 at 15:09; Status DC Neostigmine Methylsulfate 5 mg STK-MED ONCE .ROUTE ; Start 09/10/17 at 15:08; Stop 09/10/17 at 15:09; Status DC Sevoflurane (Ultane) 60 ml STK-MED ONCE IH ; Start 09/10/17 at 15:09; Stop at 15:10; Status DC Desflurane (Suprane) 60 ml STK-MED ONCE IH ; Start 09/10/17 at 15:09; Stop at 15:10; Status DC Fentanyl Citrate (Fentanyl 2ml Vial) 100 mcg STK-MED ONCE .ROUTE ; Start at 15:16; Stop 09/10/17 at 15:17; Status DC Diphenhydramine HCl (Benadryl) 25 mg PRN Q6HRS PRN PO ITCHING; Start 09/10/17 at 15:45 Diphenhydramine HCl (Benadryl) 25 mg PRN Q6HRS PRN IV ITCHING; Start 09/10/17 at 15:45 Enoxaparin Sodium (Lovenox 40mg Syringe) 40 mg Q12H SQ ; Start 09/11/17 at 09: 00 Sodium Chloride (Normal Saline Flush) 3 ml QSHIFT PRN IV AFTER MEDS AND BLOOD DRAWS; Start 09/10/17 at 15:45 Potassium Chloride/Sodium Chloride 1,000 ml @ 100 mls/hr Q10H IV Last administered on 09/11/17t 02:00; Start 09/10/17 at 16:00 Dextrose (Dextrose 50%-Water Syringe) 12.5 gm PRN Q15MIN PRN IV SEE COMMENTS; Start 09/10/17 at 15:45 Oxycodone/ Acetaminophen (Percocet 5/325) 1 tab PRN Q4HRS PRN PO MILD PAIN, 1ST CHOICE; Start 09/10/17 at 15:45; Status UNV Oxycodone/ Acetaminophen (Percocet 5/325) 2 tab PRN Q4HRS PRN PO MODERATE PAIN , SEVERE PAIN; Start 09/10/17 at 15:45; Status UNV Hydromorphone HCl (Dilaudid) 1 mg PRN Q3HRS PRN IV PAIN Last administered on 08:46; Start 09/10/17 at 15:45 Ondansetron HCl (Zofran) 4 mg PRN Q6HRS PRN IV NAUESA, 1ST CHOICE Last administered on 09/11/17t 03:16; Start 09/10/17 at 15:45 Fentanyl Citrate (Fentanyl 2ml Vial) 100 mcg STK-MED ONCE .ROUTE ; Start at 16:13; Stop 09/10/17 at 16:14; Status DC Active Scripts Active Reported Metoprolol Succinate ( Xl ) (Metoprolol Succinate) 25 Mg Tab.er.24h 25 Mg PO DAILY Amlodipine Besylate 10 Mg Tablet 10 Mg PO DAILY Vitals/I & O Vital Sign - Last 24 Hours 09/10/17 09/10/17 09/10/17 09/10/17 10:35 11:00 11:50 13:05 Temp 97.2 97.8 97.6 97.2 97.8 97.6 Pulse 59 64 64 63 Resp 20 20 16 B/P (MAP) 188/95 192/99 (130) 192/99 196/91 Pulse Ox 99 97 100 O2 Delivery Room Air Room Air Room Air 09/10/17 09/10/17 09/10/17 09/10/17 15:21 15:34 15:36 15:46 Pulse 72 76 Resp 16 18 16 18 B/P (MAP) 171/90 176/85 Pulse Ox 100 98 2 O2 Delivery Simple Mask Simple Mask Room Air Nasal Cannula O2 Flow Rate 10 10.0 2 92.0 09/10/17 09/10/17 09/10/17 09/10/17 15:51 16:17 16:26 16:45 Temp 98.2 97.9 98.2 97.9 Pulse 76 80 83 Resp 16 20 B/P (MAP) 173/88 197/96 195/97 (129) Pulse Ox 92 93 96 O2 Delivery Nasal Cannula Nasal Cannula Nasal Cannula O2 Flow Rate 2 2.0 3.0 09/10/17 09/10/17 09/10/17 09/10/17 17:00 17:15 17:30 17:59 Pulse 94 89 89 B/P (MAP) 178/87 (117) 175/87 (116) 170/87 (114) Pulse Ox 100 100 100 96 O2 Delivery Nasal Cannula Nasal Cannula Nasal Cannula Room Air O2 Flow Rate 3.0 3.0 3.0 3.0 09/10/17 09/10/17 09/10/1717 18:00 18:30 19:30 19:41 Pulse 102 92 92 Resp 18 B/P (MAP) 169/92 (117) 147/77 (100) 132/91 (105) Pulse Ox 99 96 97 96 O2 Delivery Nasal Cannula Nasal Cannula Room Air O2 Flow Rate 3.0 3.0 3.0 3.0 09/10/17 09/10/17 09/10/17 09/10/17 19:42 20:00 20:30 22:37 Pulse 95 95 Resp 18 B/P (MAP) 150/86 (107) 150/86 Pulse Ox 96 97 O2 Delivery Room Air O2 Flow Rate 3.0 3.0 09/10/17 09/10/17 09/10/17 09/11/17 23:00 23:01 23:30 03:11 Temp 97.9 97.7 97.9 97.7 Pulse 97 70 Resp 19 16 18 18 B/P (MAP) 147/89 (108) 154/80 (104) Pulse Ox 97 94 O2 Delivery Room Air Room Air Room Air Room Air 09/11/17 09/11/17 09/11/17 07:00 08:45 08:46 Temp 97.8 97.8 Pulse 76 76 Resp 18 B/P (MAP) 163/85 (111) 163/85 Pulse Ox 95 O2 Delivery Room Air Room Air Assessment Stable POD #1 lap kerrie. Plan of Care: Continue current Tx, RAQUEL Marx MD Sep 11, 2017 09:24
[2017-09-11 09:42] LABS: PLT ESTIMATE ADEQUATE (ADEQUATE)
[2017-09-11 11:00] VITALS: BP 150/72
--- NOTE | 2017-09-11 11:12 | PDOC ---
Provider Note Provider Note SURG POD 1 a little sore tolerating po no new recs post op visit next week EUGENIA IRBY MD Sep 11, 2017 11:12
--- NOTE | 2017-09-11 11:29 | OP ---
DATE OF SURGERY: 09/10/2017 PREOPERATIVE DIAGNOSIS: Gallstone pancreatitis. POSTOPERATIVE DIAGNOSIS: Gallstone pancreatitis. PROCEDURE: Laparoscopic cholecystectomy with cholangiogram. SURGEON: Eugenia Irby MD ANESTHESIA: General endotracheal. ESTIMATED BLOOD LOSS: 10. INTRAVENOUS FLUID: 800. INDICATIONS: The patient is a 61-year-old pleasant female who presented with gallstone pancreatitis. Her pain resolved and her lipase is trending downward. She is brought for cholecystectomy. OPERATIVE FINDINGS: The liver was generous, smooth, and sharp. The gallbladder was supple with a few filmy omental adhesions. The cholangiograms were unremarkable. DESCRIPTION OF PROCEDURE: The patient brought to the operating suite, given a general endotracheal anesthetic and the abdomen prepped and draped in the usual sterile fashion. A supraumbilical incision was made through the skin and subcutaneous tissue and a 150 mm Visiport was used to gain access into the abdominal cavity, taking care to avoid injury to abdominal contents. Pneumoperitoneum established. Camera inserted and inspection carried out with results as noted above. With the table in reverse Trendelenburg rolled to the left, the epigastric, midclavicular, and lateral ports were placed under direct vision. The gallbladder was retracted superolaterally and carefully exposed by taking down some filmy omental adhesions with gentle blunt and cautery dissection, taking care to avoid injury to the adjacent bowel. The cystic duct and cystic artery were identified. The duct was clipped on the gallbladder side. Cholangiograms were made. These were normal. In light of this, the catheter was removed. The cystic duct was clipped and divided, taking care to avoid injury or compromise of the common duct. The cystic artery was clipped and divided and gallbladder freed from the bed with cautery dissection and placed in an EndoCatch bag. Good hemostasis was present and no evidence of a bile leak in the fossa was seen. Table returned to level. Gallbladder delivered through the epigastric incision. Epigastric incision closed with interrupted 0 Vicryl suture. Intra-abdominal pressure decreased to 6 cm of water. No bleeding seen from the epigastric closure or from the midclavicular or lateral port sites after their removal. Abdomen decompressed, camera slowly removed, no bleeding seen. Skin incisions closed with subcuticular 4-0 Monocryl. Steri-Strips and sterile dressings applied. The patient awakened from her anesthetic and taken to the recovery room in satisfactory condition. EUGENIA IRBY MD DR: Paulina JOB#: [id number] / [id number]
--- NOTE | 2017-09-11 14:33 | PDOC ---
PROGRESS NOTES Chief Complaint Chief Complaint 1. acute Gallstone pancreatitis 2. HTN, intermittently controlled 3. obesity, BMI 43 4. hypokalemia 5. vasomotor nephropathy, POA almost hypernatremic on admit, subclinical change 6. mild malnutrition, POA has worsened 7. History of Present Illness History of Present Illness Abd pain better, still some needing IV pain meds mostly\ No emesis Lipase down yesterdaym, trending nicely from 50K pancreatitis, mild s/p kerrie POD #1 Vitals Vitals Vital Signs Date Time Temp Pulse Resp B/P (MAP) Pulse Ox O2 Delivery O2 Flow Rate FiO2 09/11/17 11:00 98.0 91 18 150/72 (98) 96 Room Air 98.0 09/10/17 20:30 3.0 Physical Exam General: Alert, Oriented X3, Cooperative, No acute distress Heart: Normal S1, Normal S2, No murmurs, Other (tachy) Abdomen: Soft, No tenderness Extremities: No clubbing, No cyanosis Skin: No rashes, No breakdown Labs LABS Laboratory Tests Test 09/11/17 06:37 White Blood Count 9.0 x10^3/uL (4.0-11.0) Red Blood Count 4.11 x10^6/uL (3.50-5.40) Hemoglobin 11.7 g/dL (12.0-15.5) Hematocrit 35.4 % (36.0-47.0) Mean Corpuscular Volume 86 fL (79-100) Mean Corpuscular Hemoglobin 28 pg (25-35) Mean Corpuscular Hemoglobin Concent 33 g/dL (31-37) Red Cell Distribution Width 14.4 % (11.5-14.5) Platelet Count 275 x10^3/uL (140-400) Neutrophils (%) (Auto) 90 % (31-73) Lymphocytes (%) (Auto) 8 % (24-48) Monocytes (%) (Auto) 3 % (0-9) Eosinophils (%) (Auto) 0 % (0-3) Basophils (%) (Auto) 0 % (0-3) Neutrophils # (Auto) 8.0 x10^3uL (1.8-7.7) Lymphocytes # (Auto) 0.7 x10^3/uL (1.0-4.8) Monocytes # (Auto) 0.2 x10^3/uL (0.0-1.1) Eosinophils # (Auto) 0.0 x10^3/uL (0.0-0.7) Basophils # (Auto) 0.0 x10^3/uL (0.0-0.2) Segmented Neutrophils % 86 % (35-66) Band Neutrophils % 2 % (0-9) Lymphocytes % 9 % (24-48) Monocytes % 3 % (0-10) Platelet Estimate Adequate (ADEQUATE) Sodium Level 137 mmol/L (136-145) Potassium Level 4.6 mmol/L (3.5-5.1) Chloride Level 104 mmol/L (98-107) Carbon Dioxide Level 23 mmol/L (21-32) Anion Gap 10 (6-14) Blood Urea Nitrogen 10 mg/dL (7-20) Creatinine 1.0 mg/dL (0.6-1.0) Estimated GFR (Cockcroft-Gault) 68.7 BUN/Creatinine Ratio 10 (6-20) Glucose Level 131 mg/dL (70-99) Calcium Level 9.4 mg/dL (8.5-10.1) Total Bilirubin 0.2 mg/dL (0.2-1.0) Aspartate Amino Transf (AST/SGOT) 39 U/L (15-37) Alanine Aminotransferase (ALT/SGPT) 104 U/L (14-59) Alkaline Phosphatase 157 U/L (46-116) Total Protein 7.5 g/dL (6.4-8.2) Albumin 3.0 g/dL (3.4-5.0) Albumin/Globulin Ratio 0.7 (1.0-1.7) Review of Systems Review of Systems nausea, weakness, poor PO intake Comment Review of Relevant I have reviewed the following items flor (where applicable) has been applied. Labs Laboratory Tests Test 09/10/17 04:00 09/11/17 06:37 Lipase 420 U/L (73-393) White Blood Count 9.0 x10^3/uL (4.0-11.0) Red Blood Count 4.11 x10^6/uL (3.50-5.40) Hemoglobin 11.7 g/dL (12.0-15.5) Hematocrit 35.4 % (36.0-47.0) Mean Corpuscular Volume 86 fL (79-100) Mean Corpuscular Hemoglobin 28 pg (25-35) Mean Corpuscular Hemoglobin Concent 33 g/dL (31-37) Red Cell Distribution Width 14.4 % (11.5-14.5) Platelet Count 275 x10^3/uL (140-400) Neutrophils (%) (Auto) 90 % (31-73) Lymphocytes (%) (Auto) 8 % (24-48) Monocytes (%) (Auto) 3 % (0-9) Eosinophils (%) (Auto) 0 % (0-3) Basophils (%) (Auto) 0 % (0-3) Neutrophils # (Auto) 8.0 x10^3uL (1.8-7.7) Lymphocytes # (Auto) 0.7 x10^3/uL (1.0-4.8) Monocytes # (Auto) 0.2 x10^3/uL (0.0-1.1) Eosinophils # (Auto) 0.0 x10^3/uL (0.0-0.7) Basophils # (Auto) 0.0 x10^3/uL (0.0-0.2) Segmented Neutrophils % 86 % (35-66) Band Neutrophils % 2 % (0-9) Lymphocytes % 9 % (24-48) Monocytes % 3 % (0-10) Platelet Estimate Adequate (ADEQUATE) Sodium Level 137 mmol/L (136-145) Potassium Level 4.6 mmol/L (3.5-5.1) Chloride Level 104 mmol/L (98-107) Carbon Dioxide Level 23 mmol/L (21-32) Anion Gap 10 (6-14) Blood Urea Nitrogen 10 mg/dL (7-20) Creatinine 1.0 mg/dL (0.6-1.0) Estimated GFR (Cockcroft-Gault) 68.7 BUN/Creatinine Ratio 10 (6-20) Glucose Level 131 mg/dL (70-99) Calcium Level 9.4 mg/dL (8.5-10.1) Total Bilirubin 0.2 mg/dL (0.2-1.0) Aspartate Amino Transf (AST/SGOT) 39 U/L (15-37) Alanine Aminotransferase (ALT/SGPT) 104 U/L (14-59) Alkaline Phosphatase 157 U/L (46-116) Total Protein 7.5 g/dL (6.4-8.2) Albumin 3.0 g/dL (3.4-5.0) Albumin/Globulin Ratio 0.7 (1.0-1.7) Laboratory Tests Test 09/11/17 06:37 White Blood Count 9.0 x10^3/uL (4.0-11.0) Red Blood Count 4.11 x10^6/uL (3.50-5.40) Hemoglobin 11.7 g/dL (12.0-15.5) Hematocrit 35.4 % (36.0-47.0) Mean Corpuscular Volume 86 fL (79-100) Mean Corpuscular Hemoglobin 28 pg (25-35) Mean Corpuscular Hemoglobin Concent 33 g/dL (31-37) Red Cell Distribution Width 14.4 % (11.5-14.5) Platelet Count 275 x10^3/uL (140-400) Neutrophils (%) (Auto) 90 % (31-73) Lymphocytes (%) (Auto) 8 % (24-48) Monocytes (%) (Auto) 3 % (0-9) Eosinophils (%) (Auto) 0 % (0-3) Basophils (%) (Auto) 0 % (0-3) Neutrophils # (Auto) 8.0 x10^3uL (1.8-7.7) Lymphocytes # (Auto) 0.7 x10^3/uL (1.0-4.8) Monocytes # (Auto) 0.2 x10^3/uL (0.0-1.1) Eosinophils # (Auto) 0.0 x10^3/uL (0.0-0.7) Basophils # (Auto) 0.0 x10^3/uL (0.0-0.2) Segmented Neutrophils % 86 % (35-66) Band Neutrophils % 2 % (0-9) Lymphocytes % 9 % (24-48) Monocytes % 3 % (0-10) Platelet Estimate Adequate (ADEQUATE) Sodium Level 137 mmol/L (136-145) Potassium Level 4.6 mmol/L (3.5-5.1) Chloride Level 104 mmol/L (98-107) Carbon Dioxide Level 23 mmol/L (21-32) Anion Gap 10 (6-14) Blood Urea Nitrogen 10 mg/dL (7-20) Creatinine 1.0 mg/dL (0.6-1.0) Estimated GFR (Cockcroft-Gault) 68.7 BUN/Creatinine Ratio 10 (6-20) Glucose Level 131 mg/dL (70-99) Calcium Level 9.4 mg/dL (8.5-10.1) Total Bilirubin 0.2 mg/dL (0.2-1.0) Aspartate Amino Transf (AST/SGOT) 39 U/L (15-37) Alanine Aminotransferase (ALT/SGPT) 104 U/L (14-59) Alkaline Phosphatase 157 U/L (46-116) Total Protein 7.5 g/dL (6.4-8.2) Albumin 3.0 g/dL (3.4-5.0) Albumin/Globulin Ratio 0.7 (1.0-1.7) Medications Current Medications Multi-Ingredient Mouthwash/Gargle (Gi Cocktail Single Dose) 15 ml 1X ONCE SWSW Last administered on 09/07/17 07:56; Start 09/07/17 at 07:30; Stop at 07:39; Status DC Metoprolol Succinate (Toprol Xl) 50 mg 1X ONCE PO Last administered on 08:50; Start 09/07/17 at 09:00; Stop 09/07/17 at 09:01; Status DC Ondansetron HCl (Zofran) 4 mg PRN Q8HRS PRN IV NAUSEA/VOMITING; Start at 09:00; Stop 09/08/17 at 08:59; Status DC Morphine Sulfate 2 mg PRN Q2HR PRN IV PAIN; Start 09/07/17 at 09:00; Stop at 09:02; Status DC Sodium Chloride 1,000 ml @ 100 mls/hr Q10H IV Last administered on 09/07/17 21:44; Start 09/07/17 at 09:00; Stop 09/08/17 at 08:59; Status DC Pantoprazole Sodium (Protonix) 40 mg DAILYAC PO Last administered on 08:44; Start 09/07/17 at 09:00 Iohexol (Omnipaque 240 Mg/ml) 50 ml 1X ONCE PO Last administered on 12:30; Start 09/07/17 at 12:30; Stop 09/07/17 at 12:31; Status DC Iohexol (Omnipaque 300 Mg/ml) 75 ml 1X ONCE IV Last administered on 13:35; Start 09/07/17 at 12:30; Stop 09/07/17 at 12:31; Status DC Info (Do NOT chart on this entry -- for MONITORING) 1 each PRN DAILY PRN MC SEE COMMENTS; Start 09/07/17 at 12:15; Stop 09/09/17 at 12:14; Status DC Metoprolol Tartrate (Lopressor) 50 mg BID PO Last administered on 09/08/17 07 :58; Start 09/07/17 at 18:00; Stop 09/08/17 at 09:14; Status DC Morphine Sulfate 2 mg PRN Q4HRS PRN IV PAIN; Start 09/07/17 at 17:30 Ondansetron HCl (Zofran) 4 mg PRN Q6HRS PRN IV NAUSEA/VOMITING; Start at 09:15; Stop 09/10/17 at 15:39; Status DC Sodium Chloride 1,000 ml @ 125 mls/hr Q8H IV Last administered on 09/09/17 09:44; Start 09/08/17 at 09:15; Stop 09/09/17 at 10:23; Status DC Hydralazine HCl (Apresoline Inj) 10 mg PRN Q4HRS PRN IVP ELEVATED BP, SEE COMMENTS; Start 09/08/17 at 09:15; Stop 09/10/17 at 12:05; Status DC Amlodipine Besylate (Norvasc) 10 mg DAILY PO Last administered on 09/11/17 08 :45; Start 09/08/17 at 09:30 Metoprolol Succinate (Toprol Xl) 25 mg DAILY PO ; Start 09/08/17 at 09:30; Stop 09/08/17 at 09:30; Status DC Oxycodone/ Acetaminophen (Percocet 5/325) 1 tab PRN Q4HRS PRN PO PAIN; Start 09/08/17 at 09:15; Status UNV Oxycodone/ Acetaminophen (Percocet 10/325) 1 tab PRN Q4HRS PRN PO opain; Start 09/08/17 at 09:15; Status UNV Metoprolol Succinate (Toprol Xl) 25 mg HS PO Last administered on 09/08/17 20 :47; Start 09/08/17 at 21:00; Stop 09/09/17 at 11:03; Status DC Potassium Chloride/Dextrose/ Sod Cl 1,000 ml @ 100 mls/hr Q10H IV Last administered on 09/10/17 09:39; Start 09/09/17 at 10:30; Stop 09/10/17 at 15 :39; Status DC Potassium Chloride 100 ml @ 100 mls/hr 1X ONCE IV Last administered on 12:31; Start 09/09/17 at 11:00; Stop 09/09/17 at 11:59; Status DC Metoprolol Succinate (Toprol Xl) 50 mg HS PO Last administered on 09/09/17 22 :38; Start 09/09/17 at 21:00; Stop 09/10/17 at 12:02; Status DC Docusate Sodium (Colace) 100 mg DAILY PO ; Start 09/09/17 at 12:00 Docusate Sodium (Colace) 100 mg PRN DAILY PRN PO CONSTIPATION; Start 09/09/17 at 11:15 Ondansetron HCl (Zofran) 4 mg PRN Q6HRS PRN IV NAUSEA/VOMITING; Start at 07:00; Stop 09/11/17 at 06:59; Status DC Fentanyl Citrate (Fentanyl 2ml Vial) 25 mcg PRN Q5MIN PRN IV MILD PAIN; Start 09/10/17 at 07:00; Stop 09/11/17 at 06:59; Status DC Fentanyl Citrate (Fentanyl 2ml Vial) 50 mcg PRN Q5MIN PRN IV MODERATE PAIN Last administered on 09/10/17 16:26; Start 09/10/17 at 07:00; Stop 09/11/17 at 06:59; Status DC Ringer's Solution 1,000 ml @ 30 mls/hr Q24H IV ; Start 09/10/17 at 07:00; Stop 09/10/17 at 18:59; Status DC Lidocaine HCl (Xylocaine-Mpf 1% Vial) 2 ml PRN 1X PRN ID IV START; Start 09/10 at 07:00; Stop 09/11/17 at 06:59; Status DC Prochlorperazine Edisylate (Compazine) 5 mg PACU PRN PRN IV NAUSEA, MRX1 Last administered on 09/10/17t 15:47; Start 09/10/17 at 07:00; Stop 09/11/17 at 06 :59; Status DC Dexamethasone Sodium Phosphate (Decadron) 20 mg STK-MED ONCE .ROUTE ; Start at 10:26; Stop 09/10/17 at 10:27; Status DC Lidocaine HCl (Lidocaine Pf 2% Vial) 5 ml STK-MED ONCE .ROUTE ; Start 09/10/17 at 10:26; Stop 09/10/17 at 10:27; Status DC Ondansetron HCl (Zofran) 4 mg STK-MED ONCE .ROUTE ; Start 09/10/17 at 10:26; Stop 09/10/17 at 10:27; Status DC Propofol 20 ml @ As Directed STK-MED ONCE IV ; Start 09/10/17 at 10:26; Stop 09/10/17 at 10:27; Status DC Midazolam HCl (Versed) 2 mg STK-MED ONCE .ROUTE ; Start 09/10/17 at 10:26; Stop 09/10/17 at 10:27; Status DC Fentanyl Citrate (Fentanyl 2ml Vial) 100 mcg STK-MED ONCE .ROUTE ; Start at 10:26; Stop 09/10/17 at 10:27; Status DC Succinylcholine Chloride (Anectine) 200 mg STK-MED ONCE .ROUTE ; Start at 10:26; Stop 09/10/17 at 10:27; Status DC Metoprolol Succinate (Toprol Xl) 100 mg HS PO Last administered on 09/10/17t 22:37; Start 09/10/17 at 21:00 Hydralazine HCl (Apresoline Inj) 10 mg PRN Q4HRS PRN IVP ELEVATED BP, SEE COMMENTS Last administered on 09/10/17t 16:17; Start 09/10/17 at 12:15 Cefazolin Sodium/ Dextrose 50 ml @ As Directed STK-MED ONCE IV ; Start at 13:44; Stop 09/10/17 at 13:45; Status DC Iohexol (Omnipaque 300 Mg/ml) 50 ml STK-MED ONCE .ROUTE Last administered on t 14:47; Start 09/10/17 at 12:56; Stop 09/10/17 at 13:57; Status DC Bupivacaine HCl/ Epinephrine Bitart (Marcaine-Epi 0.25%-[id number]) 50 ml STK-MED ONCE .ROUTE Last administered on 09/10/17t 14:36; Start 09/10/17 at 12:56; Stop 09/10/17 at 13:57; Status DC Glucagon (Glucagen) 1 mg STK-MED ONCE .ROUTE ; Start 09/10/17 at 12:57; Stop 09/10/17 at 13:57; Status DC Cellulose 1 each STK-MED ONCE .ROUTE ; Start 09/10/17 at 12:57; Stop 09/10/17 at 13:57; Status DC Vecuronium [place] (Norcuron Bolus) 10 mg STK-MED ONCE IV ; Start 09/10/17 at 14:04; Stop 09/10/17 at 14:05; Status DC Fentanyl Citrate (Fentanyl 2ml Vial) 100 mcg STK-MED ONCE .ROUTE ; Start at 14:31; Stop 09/10/17 at 14:32; Status DC Rocuronium [place] (Zemuron) 100 mg STK-MED ONCE .ROUTE ; Start 09/10/17 at 14: 32; Stop 09/10/17 at 14:33; Status DC Hydralazine HCl (Apresoline Inj) 20 mg STK-MED ONCE .ROUTE ; Start 09/10/17 at 14:37; Stop 09/10/17 at 14:38; Status DC Glycopyrrolate (Robinul) 1 mg STK-MED ONCE .ROUTE ; Start 09/10/17 at 15:08; Stop 09/10/17 at 15:09; Status DC Neostigmine Methylsulfate 5 mg STK-MED ONCE .ROUTE ; Start 09/10/17 at 15:08; Stop 09/10/17 at 15:09; Status DC Sevoflurane (Ultane) 60 ml STK-MED ONCE IH ; Start 09/10/17 at 15:09; Stop at 15:10; Status DC Desflurane (Suprane) 60 ml STK-MED ONCE IH ; Start 09/10/17 at 15:09; Stop at 15:10; Status DC Fentanyl Citrate (Fentanyl 2ml Vial) 100 mcg STK-MED ONCE .ROUTE ; Start at 15:16; Stop 09/10/17 at 15:17; Status DC Diphenhydramine HCl (Benadryl) 25 mg PRN Q6HRS PRN PO ITCHING; Start 09/10/17 at 15:45 Diphenhydramine HCl (Benadryl) 25 mg PRN Q6HRS PRN IV ITCHING; Start 09/10/17 at 15:45 Enoxaparin Sodium (Lovenox 40mg Syringe) 40 mg Q12H SQ ; Start 09/11/17 at 09: 00 Sodium Chloride (Normal Saline Flush) 3 ml QSHIFT PRN IV AFTER MEDS AND BLOOD DRAWS; Start 09/10/17 at 15:45 Potassium Chloride/Sodium Chloride 1,000 ml @ 100 mls/hr Q10H IV Last administered on 09/11/17 02:00; Start 09/10/17 at 16:00 Dextrose (Dextrose 50%-Water Syringe) 12.5 gm PRN Q15MIN PRN IV SEE COMMENTS; Start 09/10/17 at 15:45 Oxycodone/ Acetaminophen (Percocet 5/325) 1 tab PRN Q4HRS PRN PO MILD PAIN, 1ST CHOICE; Start 09/10/17 at 15:45; Status UNV Oxycodone/ Acetaminophen (Percocet 5/325) 2 tab PRN Q4HRS PRN PO MODERATE PAIN , SEVERE PAIN; Start 09/10/17 at 15:45; Status UNV Hydromorphone HCl (Dilaudid) 1 mg PRN Q3HRS PRN IV PAIN Last administered on 08:46; Start 09/10/17 at 15:45 Ondansetron HCl (Zofran) 4 mg PRN Q6HRS PRN IV NAUESA, 1ST CHOICE Last administered on 09/11/17 13:04; Start 09/10/17 at 15:45 Fentanyl Citrate (Fentanyl 2ml Vial) 100 mcg STK-MED ONCE .ROUTE ; Start at 16:13; Stop 09/10/17 at 16:14; Status DC Tramadol HCl (Ultram) 100 mg PRN Q6HRS PRN PO PAIN; Start 09/11/17 at 11:00 Active Scripts Active Reported Metoprolol Succinate ( Xl ) (Metoprolol Succinate) 25 Mg Tab.er.24h 25 Mg PO DAILY Amlodipine Besylate 10 Mg Tablet 10 Mg PO DAILY Vitals/I & O Vital Sign - Last 24 Hours 09/10/17 09/10/17 09/10/17 09/10/17 15:21 15:34 15:36 15:46 Pulse 72 76 Resp 16 18 16 18 B/P (MAP) 171/90 176/85 Pulse Ox 100 98 2 O2 Delivery Simple Mask Simple Mask Room Air Nasal Cannula O2 Flow Rate 10 10.0 2 92.0 09/10/17 09/10/17 09/10/17 09/10/17 15:51 16:17 16:26 16:45 Temp 98.2 97.9 98.2 97.9 Pulse 76 80 83 Resp 16 20 B/P (MAP) 173/88 197/96 195/97 (129) Pulse Ox 92 93 96 O2 Delivery Nasal Cannula Nasal Cannula Nasal Cannula O2 Flow Rate 2 2.0 3.0 09/10/17 09/10/17 09/10/17 09/10/17 17:00 17:15 17:30 17:59 Pulse 94 89 89 B/P (MAP) 178/87 (117) 175/87 (116) 170/87 (114) Pulse Ox 100 100 100 96 O2 Delivery Nasal Cannula Nasal Cannula Nasal Cannula Room Air O2 Flow Rate 3.0 3.0 3.0 3.0 09/10/17 09/10/17 09/10/17 09/10/17 18:00 18:30 19:30 19:41 Pulse 102 92 92 Resp 18 B/P (MAP) 169/92 (117) 147/77 (100) 132/91 (105) Pulse Ox 99 96 97 96 O2 Delivery Nasal Cannula Nasal Cannula Room Air O2 Flow Rate 3.0 3.0 3.0 3.0 09/10/17 09/10/17 09/10/17 09/10/17 19:42 20:00 20:30 22:37 Pulse 95 95 Resp 18 B/P (MAP) 150/86 (107) 150/86 Pulse Ox 96 97 O2 Delivery Room Air O2 Flow Rate 3.0 3.0 09/10/17 09/10/17 09/10/17 09/11/17 23:00 23:01 23:30 03:11 Temp 97.9 97.7 97.9 97.7 Pulse 97 70 Resp 19 16 18 18 B/P (MAP) 147/89 (108) 154/80 (104) Pulse Ox 97 94 O2 Delivery Room Air Room Air Room Air 09/11/17 09/11/17 09/11/17 09/11/17 07:00 08:45 08:46 09:22 Temp 97.8 97.8 Pulse 76 76 Resp 18 B/P (MAP) 163/85 (111) 163/85 Pulse Ox 95 O2 Delivery Room Air Room Air Room Air 09/11/17 11:00 Temp 98.0 98.0 Pulse 91 Resp 18 B/P (MAP) 150/72 (98) Pulse Ox 96 O2 Delivery Room Air DIONNE BURNS MD Sep 11, 2017 14:33
[2017-09-11 14:54] VITALS: BP 163/76
[2017-09-11 19:00] VITALS: BP 145/76
[2017-09-11] MEDS: METOPROLOL SUCC 24HR ER 50 MG TAB.ER.24H. PO SCH (20:41)
[2017-09-11] MEDS: traMADol 50 MG TABLET PO PRN (20:42)
[2017-09-11 23:00] VITALS: BP 130/79
[2017-09-12 03:00] VITALS: BP 148/83
[2017-09-12 07:00] VITALS: BP 148/78
[2017-09-12] MEDS: POTASSIUM CL 20MEQ-0.45% NACL 1,000 ML IV SCH (08:00)
[2017-09-12] MEDS: ENOXAPARIN 40 MG/0.4 ML SYRINGE. SQ SCH (08:27)
[2017-09-12] MEDS: DOCUSATE SODIUM 100 MG CAPSULE. PO SCH (08:28)
[2017-09-12] MEDS: traMADol 50 MG TABLET PO PRN (08:28)
[2017-09-12] MEDS: PANTOPRAZOLE 40 MG TABLET.DR. PO SCH (08:28)
[2017-09-12] MEDS: amLODIPine BESYLATE 10 MG TABLET PO SCH (08:29)
[2017-09-12] MEDS ORDERED: METO50TA29 PO (08:44)
[2017-09-12] MEDS ORDERED: DOCU-109 PO (08:44)
[2017-09-12] MEDS ORDERED: ACET325T9 PO (08:44)
[2017-09-12] MEDS ORDERED: TRAM50TA PO (08:44)
--- NOTE | 2017-09-12 10:57 | PDOC ---
SURGICAL PROGRESS NOTE Subjective tolerating diet feeling well Vital Signs Vital Signs Date Time Temp Pulse Resp B/P (MAP) Pulse Ox O2 Delivery O2 Flow Rate FiO2 09/12/17 09:36 Room Air 09/12/17 08:29 56 148/78 09/12/17 07:00 97.7 16 99 97.7 09/11/17 20:00 2.0 I&O Intake and Output 09/13/17 07:00 Intake Total 480 ml Balance 480 ml Intake Oral 480 ml General: Alert, Oriented X3, Cooperative, No acute distress Abdomen: Soft, Other (ND, NTTP, lap sites c/d/i, no erythema ) Labs Laboratory Tests Test 09/11/17 06:37 White Blood Count 9.0 x10^3/uL (4.0-11.0) Red Blood Count 4.11 x10^6/uL (3.50-5.40) Hemoglobin 11.7 g/dL (12.0-15.5) Hematocrit 35.4 % (36.0-47.0) Mean Corpuscular Volume 86 fL (79-100) Mean Corpuscular Hemoglobin 28 pg (25-35) Mean Corpuscular Hemoglobin Concent 33 g/dL (31-37) Red Cell Distribution Width 14.4 % (11.5-14.5) Platelet Count 275 x10^3/uL (140-400) Neutrophils (%) (Auto) 90 % (31-73) Lymphocytes (%) (Auto) 8 % (24-48) Monocytes (%) (Auto) 3 % (0-9) Eosinophils (%) (Auto) 0 % (0-3) Basophils (%) (Auto) 0 % (0-3) Neutrophils # (Auto) 8.0 x10^3uL (1.8-7.7) Lymphocytes # (Auto) 0.7 x10^3/uL (1.0-4.8) Monocytes # (Auto) 0.2 x10^3/uL (0.0-1.1) Eosinophils # (Auto) 0.0 x10^3/uL (0.0-0.7) Basophils # (Auto) 0.0 x10^3/uL (0.0-0.2) Segmented Neutrophils % 86 % (35-66) Band Neutrophils % 2 % (0-9) Lymphocytes % 9 % (24-48) Monocytes % 3 % (0-10) Platelet Estimate Adequate (ADEQUATE) Sodium Level 137 mmol/L (136-145) Potassium Level 4.6 mmol/L (3.5-5.1) Chloride Level 104 mmol/L (98-107) Carbon Dioxide Level 23 mmol/L (21-32) Anion Gap 10 (6-14) Blood Urea Nitrogen 10 mg/dL (7-20) Creatinine 1.0 mg/dL (0.6-1.0) Estimated GFR (Cockcroft-Gault) 68.7 BUN/Creatinine Ratio 10 (6-20) Glucose Level 131 mg/dL (70-99) Calcium Level 9.4 mg/dL (8.5-10.1) Total Bilirubin 0.2 mg/dL (0.2-1.0) Aspartate Amino Transf (AST/SGOT) 39 U/L (15-37) Alanine Aminotransferase (ALT/SGPT) 104 U/L (14-59) Alkaline Phosphatase 157 U/L (46-116) Total Protein 7.5 g/dL (6.4-8.2) Albumin 3.0 g/dL (3.4-5.0) Albumin/Globulin Ratio 0.7 (1.0-1.7) Problem List s/p kerrie TEJADA to DC FU 1 week 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
[2017-09-12 11:00] VITALS: BP 140/80
--- NOTE | 2017-09-12 11:49 | PDOC ---
Subjective: Subjective: Feeling better, says leaving today. Pain managed, tolerating PO. Objective: Vital Signs: Vital Signs Date Time Temp Pulse Resp B/P (MAP) Pulse Ox O2 Delivery O2 Flow Rate FiO2 09/12/17 09:36 Room Air 09/12/17 08:29 56 148/78 09/12/17 07:00 97.7 16 99 97.7 09/11/17 20:00 2.0 PE: GEN: NAD LUNGS: CTAB HEART: RRR ABD: ice pack to RUQ, soft NEURO/PSYCH: A & O 3 A/P: Gallstone pancreatitis s/p cholecystectomy -- DC per primary/surgery. SKY HERRERA Sep 12, 2017 11:49
--- NOTE | 2017-09-12 14:32 | PATHOLOGY ---
PATHOLOGY REPORT * * * * * * * * FINAL DIAGNOSIS: Gallbladder, laparoscopic cholecystectomy: - Cholelithiasis. - Chronic cholecystitis. 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 (JPM:pit; 09/12/2017) COMMENT: There is no evidence of malignancy. (JPM:pit; 09/12/2017) REPORT ELECTRONICALLY SIGNED BY: Christian Rose M.D. DATE/TIME: 09/12/2017 14:31 * * * * * * * * GROSS PATHOLOGY: Received in formalin labeled "Gege Mccrary, gallbladder with contents," is a 6.9 x 2.6 x 2.6 cm, intact gallbladder with dark green to bluish, slightly wrinkled, and slightly vascular serosal surfaces. Opening the gallbladder reveals a green, velvety mucosa and an average wall thickness of 0.1 cm. Calculi are present, measuring 0.1-0.3 cm in maximum dimension, possessing a bright yellow color, and feeling firm to the touch. No masses are noted grossly. Online Advertising Manager sections from the body and fundus are submitted along with the proximal margin in cassette A1. (TSD; 09/11/2017) INITIAL CPT CODE(S): A; 28658 Professional services performed by [facility] at [address] [address] Technical services performed by [facility] at [address] [place] [address]. SPECIMEN(S) RECEIVED: A.Gallbladder with contents CLINICAL HISTORY: Gallstones, pancreatitis PATIENT: GEGE MCCRARY /AGE: 11 1955 (Age: 61) PATIENT #: [id number] ALT CASE #: SPECIMEN COLLECTION DATE: 09/10/2017 SPECIMEN RECEIVED DATE: 09/11/2017 [facility] - [id number] [address] - PHONE: [phone] * * * END OF REPORT * * *
--- NOTE | 2017-09-12 15:11 | PDOC3 ---
Discharge Summary Visit Information Date of Admission: Sep 07, 2017 Date of Discharge: Sep 12, 2017 Admitting Diagnosis: acute abd pain Final Diagnosis 1. acute Gallstone pancreatitis 2. HTN, intermittently controlled 3. obesity, BMI 43 4. hypokalemia 5. vasomotor nephropathy, POA 6. mild malnutrition, POA has worsened Brief Hospital Course Allergies Allergies Coded Allergies Type Severity Reaction Last Updated Verified Sulfa (Sulfonamide Antibiotics) Allergy Severe Anaphylaxis 09/10/17 Yes aspirin Allergy Severe Anaphylaxis 09/10/17 Yes codeine Allergy Severe Anaphylaxis 09/10/17 Yes Vital Signs Vital Signs Date Time Temp Pulse Resp B/P (MAP) Pulse Ox O2 Delivery O2 Flow Rate FiO2 09/12/17 11:00 98.1 60 16 140/80 (100) 99 Room Air 98.1 09/11/17 20:00 2.0 Lab Results Laboratory Tests Test 09/11/17 06:37 White Blood Count 9.0 x10^3/uL (4.0-11.0) Red Blood Count 4.11 x10^6/uL (3.50-5.40) Hemoglobin 11.7 g/dL (12.0-15.5) Hematocrit 35.4 % (36.0-47.0) Mean Corpuscular Volume 86 fL (79-100) Mean Corpuscular Hemoglobin 28 pg (25-35) Mean Corpuscular Hemoglobin Concent 33 g/dL (31-37) Red Cell Distribution Width 14.4 % (11.5-14.5) Platelet Count 275 x10^3/uL (140-400) Neutrophils (%) (Auto) 90 % (31-73) Lymphocytes (%) (Auto) 8 % (24-48) Monocytes (%) (Auto) 3 % (0-9) Eosinophils (%) (Auto) 0 % (0-3) Basophils (%) (Auto) 0 % (0-3) Neutrophils # (Auto) 8.0 x10^3uL (1.8-7.7) Lymphocytes # (Auto) 0.7 x10^3/uL (1.0-4.8) Monocytes # (Auto) 0.2 x10^3/uL (0.0-1.1) Eosinophils # (Auto) 0.0 x10^3/uL (0.0-0.7) Basophils # (Auto) 0.0 x10^3/uL (0.0-0.2) Segmented Neutrophils % 86 % (35-66) Band Neutrophils % 2 % (0-9) Lymphocytes % 9 % (24-48) Monocytes % 3 % (0-10) Platelet Estimate Adequate (ADEQUATE) Sodium Level 137 mmol/L (136-145) Potassium Level 4.6 mmol/L (3.5-5.1) Chloride Level 104 mmol/L (98-107) Carbon Dioxide Level 23 mmol/L (21-32) Anion Gap 10 (6-14) Blood Urea Nitrogen 10 mg/dL (7-20) Creatinine 1.0 mg/dL (0.6-1.0) Estimated GFR (Cockcroft-Gault) 68.7 BUN/Creatinine Ratio 10 (6-20) Glucose Level 131 mg/dL (70-99) Calcium Level 9.4 mg/dL (8.5-10.1) Total Bilirubin 0.2 mg/dL (0.2-1.0) Aspartate Amino Transf (AST/SGOT) 39 U/L (15-37) Alanine Aminotransferase (ALT/SGPT) 104 U/L (14-59) Alkaline Phosphatase 157 U/L (46-116) Total Protein 7.5 g/dL (6.4-8.2) Albumin 3.0 g/dL (3.4-5.0) Albumin/Globulin Ratio 0.7 (1.0-1.7) Brief Hospital Course Ms. Ho is a 61 old admit [facility] acute epigastric pain radiating to back with N and V. Laboratory with elevated LFT's and lipase. Sonogram with gallstones. Hx known gallstones and ongoign prev pain intermittently Lipase 50k, and trended down to 400 for Lap Stalin on 09/[address] Serrano,, pt pain was then soreness, able to eat some, felt well, DC jhoan Discharge Information Condition at Discharge: Improved Follow Up: Weeks Disposition/Orders: D/C to Home Scheduled Amlodipine Besylate (Amlodipine Besylate), 10 MG PO DAILY, (Reported) Docusate Sodium (Colace), 100 MG PO DAILY Metoprolol Succinate (Metoprolol Succinate), 50 MG PO HS Scheduled PRN Acetaminophen (Tylenol), 2 TAB PO QID PRN for PAIN Tramadol Hcl (Tramadol Hcl), 50 MG PO PRN Q6HRS PRN for PAIN Discontinued Medications Metoprolol Succinate (Metoprolol Succinate ( Xl )), 25 MG PO DAILY, (Reported) Patient Instructions Patient Instructions > 30 min DIONNE BURNS MD Sep 12, 2017 15:11
== END 2017-09-12 12:52 | disposition home or self-care (01) | DRG 417 ==
LOC: ER 06:59 → 6 SOUTH 08:56
PROVIDERS: ADMIT Internal Medicine; ATTEND Internal Medicine
PROC: BF111ZZ Fluoroscopy of Biliary and Pancreatic Ducts using Low Osmolar Contrast (ICD-10-PCS; 2017-09-10)
PROC: 0FT44ZZ Resection of Gallbladder, Percutaneous Endoscopic Approach (ICD-10-PCS; principal; 2017-09-10 13:00)
DX: K85.10 Biliary acute pancreatitis without necrosis or infection (principal); N17.0 Acute kidney failure with tubular necrosis; E87.0 Hyperosmolality and hypernatremia; Z68.41 Body mass index [BMI] 40.0-44.9, adult; E44.1 Mild protein-calorie malnutrition; K80.20 Calculus of gallbladder without cholecystitis without obstruction; E66.9 Obesity, unspecified; E87.6 Hypokalemia; I10 Essential (primary) hypertension; K44.9 Diaphragmatic hernia without obstruction or gangrene; K66.0 Peritoneal adhesions (postprocedural) (postinfection); Z80.41 Family history of malignant neoplasm of ovary; Z83.3 Family history of diabetes mellitus; Z86.73 Personal history of transient ischemic attack (TIA), and cerebral infarction without residual deficits; Z98.51 Tubal ligation status
CPT/HCPCS: 36415; 74022; 74177; 74300; 76705; 80048; 80053; 80076; 81001; 82150; 83690; 84484; 85007; 85025; 88304; 93005; C1769; J0330; J0360; J0690; J0780; J1100; J1170; J1610; J2250; J2405; J2704; J2710; J3010; J3480; J3490; J7030; Q9966; Q9967; 99285-25; J2001